=== PATIENT | male | born 1945 | race Caucasian/White ===

== ENCOUNTER 2016-09-10 17:30 | Inpatient (IN) | payer MEDICARE, OTHER ==
[~2016-09-10] VITALS: Ht 172.7 cm; Wt 83.8 kg
--- NOTE | ~2016-09-10 | CON ---
PATIENT'S NAME: REYES JOE [facility] AGE: 70 Y [address] ROOM: [place] [address] [place] [facility] [place]: 09/10/2016 Consultation DISCHARGE DATE: FAMILY PHYSICIAN: Radha Mohr MD ATTENDING PHYSICIAN: BELGICA CR DATE OF CONSULTATION: 09/11/2016 PRINCIPAL DIAGNOSES: 1. Colovesical fistula. 2. Recurrent urinary tract infections. HISTORY: The patient is a 70-year-old male with multiple medical problems including coronary artery disease, valvular heart disease, type 2 diabetes, chronic kidney disease, severe diabetic peripheral neuropathy, chronic immobility, DVT and chronic immobilization as well as obesity, who was admitted to the hospital because of recurrent urinary tract infections. He had been treated multiple times for recurrent urinary tract infections, and they recurred. He was treated with both Bactrim and levofloxacin in the past. Therefore, a CAT scan was done at this admission, and he was noted to have diverticular disease with evidence of air in the bladder suggesting that the patient may have a colovesical fistula. Therefore, I was asked to see him in consultation. PAST MEDICAL HISTORY: As noted previously, coronary artery disease, valvular heart disease, type 2 diabetes, chronic kidney disease, diabetic nephropathy, lack of mobilization, DVT on anticoagulation, osteoarthritis, history of hypertension, hyperlipidemia, obesity, and amyloidosis for which he is on steroid therapy. FAMILY HISTORY: Significant for coronary artery disease in both his mother and his father, and he has a brother with type 2 diabetes. SOCIAL HISTORY: He drinks socially and he is a nonsmoker. REVIEW OF SYSTEMS: Noncontributory and negative, except what is noted in the history of present illness. PHYSICAL EXAMINATION: GENERAL: He is awake and alert. He is frail and ill appearing, but again in no acute distress on admission. VITAL SIGNS: Stable. PATIENT'S NAME: HEATH CLARKS [facility] AGE: 70 Y [address] ROOM: [place] [address] [place] [facility] [place]: 09/10/2016 Consultation DISCHARGE DATE: FAMILY PHYSICIAN: Radha Mohr MD ATTENDING PHYSICIAN: BELGICA CR LUNGS: Clear. HEART: Regular rate and rhythm. ABDOMEN: Obese, but soft. Mild tenderness in the left lower quadrant, but no guarding and no rebound. There are no palpable masses either. EXTREMITIES: Warm. NEUROLOGIC: Again, he has evidence of peripheral neuropathy. LABORATORY DATA: White blood cell count is 9.4 with a hemoglobin of 9.7, hematocrit 29.9, platelet count of 256,000. BUN is 57, creatinine is 1.7, glucose 89, sodium 132, potassium 4.2, chloride is 103 with a bicarbonate of 29. RADIOLOGIC STUDIES: A CAT scan of the abdomen was done without contrast, which showed some evidence of perforated diverticular disease with small abscesses and with a suggestion of a colovesical fistula. There was thickening of the bladder wall where it connects with the colon and there is air in the bladder suggesting a colovesical fistula. MEDICATIONS: Current medications include: 1. Coumadin. 2. Levothyroxine. 3. Flomax. 4. Bumex. 5. Metoprolol. 6. Hydralazine. 7. Tramadol. 8. NovoLog. 9. MiraLAX. 10. Prednisone. 11. Omeprazole. 12. Lantus. 13. Calcitriol. 14. Finasteride. 15. Vitamin D. ASSESSMENT AND PLAN: This is a 70-year-old with multiple medical problems including valvular stenosis, coronary artery disease for which he has had surgery, as well as diabetes. The patient is on prednisone as well as Coumadin. His last INR is 2. The patient's CAT scan suggests that he may have a colovesical fistula. The plan is to do a cystogram to confirm this diagnosis. The patient has significant surgical risks with both his heart disease, his prednisone therapy, his coagulopathy, and just his overall frail and obese physique. If PATIENT'S NAME: REYES JOE [facility] AGE: 70 Y [address] ROOM: [place] [address] [place] [facility] [place]: 09/10/2016 Consultation DISCHARGE DATE: FAMILY PHYSICIAN: Radha Mohr MD ATTENDING PHYSICIAN: BELGICA CR the patient does need surgery, we will need to have Anesthesia consultation as well as Cardiology consultation to make sure that we make him as optimal as possible. Thank you for allowing me to participate in the care of this patient. I will follow up after the results of the studies. MD EDUARDO MOSHER/stanley /[id number] d: 09/11/162017 t: 10/18/16 1434, CONSULTATION REPORT
--- NOTE | ~2016-09-10 | HP ---
PATIENT'S NAME: REYES JOE [facility] AGE: 70 Y [address] ROOM: [place] [address] [place]ATION: [facility] [place] ADMIT DATE: 09/10/2016 History & Physical DISCHARGE DATE: FAMILY PHYSICIAN: Radha Mohr MD ATTENDING PHYSICIAN: BELGICA CR DATE OF SERVICE: CHIEF COMPLAINT: Complicated urinary tract infection, failed outpatient antibiotic therapy, and suspected diskitis. HISTORY OF PRESENTING ILLNESS: This 70-year-old white male with previous history of coronary artery disease status post coronary artery bypass grafting, diabetic peripheral neuropathy, and chronic immobility, was sent to [facility] today after an outpatient clinic evaluation with his primary care provider for treatment of urinary tract infection. Briefly, he had developed some abdominal pain a few weeks ago. He was diagnosed with urinary tract infection and received at least two courses of antibiotic therapy including Bactrim for seven days and levofloxacin. He is continued to experience abdominal cramping and discomfort as well as dysuria and hematuria. Over the last several days, he has developed increasing back pain. X-rays done today revealed some abnormality at T12 and L1 concerning for disk infection. He was subsequently referred here for definitive evaluation and management. He denies fevers, but admits that he has had some chills and sweats intermittently. He does complain of a low-grade headache, but no nausea. His appetite has been poor. Denies any chest pain. Denies chest congestion or cough. Stools have been sluggish and he last stooled a couple of days ago. He denies noticing any blood in his stools or black tarry stools. He has had urinary frequency and hesitancy as well as significant dysuria and malodorous urine. He has noticed some episodes of hematuria as well. He does complain of persistent numbness and weakness in his lower extremities. He is chronically immobile and has not walked for a couple of years. He no longer has the ability to stand and requires the assistance of another person for transfers. He has noticed some increased swelling in his legs recently. PAST MEDICAL HISTORY: Allergies: Penicillin. ILLNESSES: PATIENT'S NAME: REYES JOE [facility] AGE: 70 Y [address] ROOM: [place] [address] LOCATION: [facility] [place] ADMIT DATE: 09/10/2016 History & Physical DISCHARGE DATE: FAMILY PHYSICIAN: Radha Mohr MD ATTENDING PHYSICIAN: BELGICA CR 1. Coronary artery disease status post coronary artery bypass grafting. 2. Valvular heart disease. 3. Diabetes mellitus type 2. 4. Chronic kidney disease, stage 3. 5. Diabetic peripheral neuropathy. 6. Chronic immobility. 7. Previous history of diskitis (not well documented). 8. DVT on long-term anticoagulation with warfarin. 9. Chronic diastolic congestive heart failure. 10. Osteoarthritis, generalized. 11. Valvular heart disease with aortic stenosis by echo October 2015. 12. Essential hypertension. 13. Hyperlipidemia. 14. History of gouty arthritis. 15. Obesity. 16. Amyloidosis on steroid therapy. CURRENT MEDICATIONS: 1. Coumadin daily. 2. Levothyroxine 25 mcg p.o. daily. 3. Flomax 0.4 mg p.o. b.i.d. 4. Bumex 2 mg p.o. daily. 5. Metoprolol 50 mg p.o. b.i.d. 6. Refresh Liquigel each eye daily as needed. 7. Hydralazine 10 mg q.6 hours p.r.n. systolic greater than 180. 8. Tramadol 50 mg 2 tablets p.o. q.8 hours p.r.n. 9. NovoLog insulin per sliding scale with meals. 10. MiraLax 17 g p.o. daily. 11. Prednisone 10 mg p.o. daily. 12. Omeprazole 20 mg p.o. daily. 13. Lantus insulin 12 units subcu daily. 14. Calcitriol 0.25 mcg two tablets p.o. 4 times a week. 15. Finasteride 5 mg p.o. daily. 16. Vitamin D 1000 units p.o. daily. FAMILY HISTORY: Significant for heart disease in both his father and mother. Father at the age of 51 and mother at 72. His brother has diabetes mellitus type 2 and suspected Rakesh-Danlos syndrome. SOCIAL HISTORY: He is and lives in [place]. 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 He is a lifelong nonsmoker. He does drink alcohol occasionally. REVIEW OF SYSTEMS: PATIENT'S NAME: HEATH REYES L [facility] AGE: 70 Y [address] ROOM: [address] [address] LOCATION: [facility] [place] ADMIT DATE: 09/10/2016 History & Physical DISCHARGE DATE: FAMILY PHYSICIAN: Radha Mohr MD ATTENDING PHYSICIAN: BELGICA CR As per HPI. All other organ systems reviewed and are negative. OBJECTIVE: VITAL SIGNS: Temperature 98, pulse 69, respirations 18, blood pressure 133/84, weight is 78.8 kilos that is down from 91.7 in October of 2015. GENERAL: He is frail, mildly ill-appearing, but in no acute distress, lying in the bed. SKIN: Supple, pink, warm, and dry. No obvious rashes. HEENT: Otherwise, normocephalic. Sclerae nonicteric, but mildly injected. Pupils are equal, round, slow to react to light. Extraocular movements appear intact. Nasal turbinates normal in appearance. Oropharynx clear. Mucous membranes are pink and moist. NECK: Supple. Plethoric. No masses or adenopathy. No thyromegaly. No JVD. CHEST: Wall is symmetrical. HEART: Regular with a grade 3/6 systolic ejection murmur. LUNGS: Diminished at the bases. No crackles or wheezes are heard. ABDOMEN: Soft, protuberant, diffusely tender, but no guarding or rebound. No masses or hepatosplenomegaly. He does have some tenderness with manipulation over the suprapubic area. : Not done. RECTAL: Not done. EXTREMITIES: Display 2+ pitting edema. No cyanosis. NEUROLOGICAL: Cranial nerves 2 through 12 appear grossly intact. Sensation appears normal, but subjectively diminished over the bilateral lower extremities. DTRs are 0 to 1+ bilaterally. Strength is 0 to 1+ out of 5 in the bilateral lower extremities. 4/5 in the bilateral upper extremities. Gait is not observed. LABORATORY AND X-RAY DATA: From [facility] today, CBC showed a white blood cell count. 9.2, hemoglobin 11.1, hematocrit 34.3, platelets 334. Chemistries reveal BUN and creatinine 52 and 1.7 respectively. Sodium and potassium of 132 and 4.6, chloride and CO2 of 98 and 27, calcium 8.5, AST and ALT 14 and 17, bilirubin. 0.8. Urinalysis was significant for packed wbcs, 15 to 20 rbcs, 4+ bacteria, 3+ leukocyte esterase, and negative nitrites. X-ray of the lumbar spine showed bony abnormalities at T12, L1. Abdomen x-ray showed moderate amount of stool, no obstruction. ASSESSMENT/PLAN: 1. Complicated urinary tract infection, he is not septic appearing. We will admit to inpatient care. He has failed at least two courses of outpatient antibiotic therapy. It does not appear that any cultures have been done and we will proceed with blood cultures, urine cultures tonight. We will also get lactate and procalcitonin to assess the severity of illness. We will initiate IV aztreonam. Consider coverage PATIENT'S NAME: REYES JOE [facility] AGE: 70 Y [address] ROOM: [id number] [place], [place] [address] LOCATION: [facility] [place] ADMIT DATE: 09/10/2016 History & Physical DISCHARGE DATE: FAMILY PHYSICIAN: Radha Mohr MD ATTENDING PHYSICIAN: BELGICA CR for Gram positive cocci. Because his renal function is poor and he is not overtly septic, we will hold off on that for tonight. We will follow culture results when they are known. 2. Acute low back pain, differential diagnosis includes the possibility of diskitis. We will plan to get MRI scan tomorrow to better delineate. He does have previous history of diskitis, although that is not well documented. We will continue with broad-spectrum antibiotic therapy as above and await imaging findings. 3. Generalized abdominal pain, presumably related to his urinary tract infection. We will proceed with CT scan to surveil for other possible sources of infection. 4. Chronic kidney disease, stage 3, currently, clinically stable. We will watch his fluid volume balance closely. We will go ahead and initiate some very gentle IV fluid hydration therapy tonight and plan to continue his home Bumex regimen. 5. Coronary artery disease, clinically asymptomatic and stable. He is not currently on aspirin or statin therapy. We will review his history and consider adding those medications. 6. Deep vein thrombosis on long-term anticoagulation with warfarin. I do not see any history of atrial fibrillation in the records. We will follow his PT/INR closely while he is in the hospital. 7. Essential hypertension, appears to be adequately controlled, we will monitor the trend. 8. Constipation, chronic, encourage a moderately aggressive bowel regimen. We will continue with MiraLax and try to mobilize him as he is physically able. 9. Diabetes mellitus type 2. We will manage with Accu-Cheks and sliding scale insulin while he is inpatient. 10. Amyloidosis on chronic steroid therapy with prednisone. We will continue with that therapy for now. 11. Diabetic peripheral neuropathy with chronic immobility. He is at high risk for skin breakdown and recurrent infections. We will try to mobilize him as he can tolerate. 12. Deep venous thrombosis prophylaxis. He is going to be fully anticoagulated with Coumadin as described above. MD HANDY MADSEN/stanley /[id number] D: [id number] T: [id number] HISTORY & PHYSICAL
--- NOTE | ~2016-09-10 | DS ---
PATIENT'S NAME: REYES JOE [facility] AGE: 70 Y [address] ROOM: [address] [address] [place] [facility] [place]: 09/10/2016 Discharge Summary DISCHARGE DATE: 09/21/2016 FAMILY PHYSICIAN: Radha Mohr MD ATTENDING PHYSICIAN: Leia Cain FINAL DIAGNOSES: 1. Diverticulosis with abscess and perforation. 2. Nlxvn-fu-yzrhirw back pain. 3. Diabetes mellitus type 2. 4. Chronic urinary tract infection, secondary to suspected colonic vesicular fistula. 5. Amyloidosis, on long-term steroid therapy. 6. Essential hypertension. 7. History of deep vein thrombosis on long-term anticoagulation. 8. Stage 3 chronic kidney disease. 9. Mild aortic stenosis. 10. Acute kidney injury. HISTORY OF PRESENT ILLNESS: For details of admission, please see the history and physical dictated by Dr. Pelaez for details. In short, the patient had been treated for recurrent urinary tract infections and was transferred due to increasing abdominal pain, nausea, and vomiting. LABORATORY STUDIES: Sodium on admission was 137, most prior discharge to 142, potassium on admission was 4.2, most prior to discharge 3.6, BUN on admission was 57, most prior to discharge 39, creatinine on admission was 1.7, at discharge was 1.2. Liver enzymes on admission were normal. Magnesium on admit was 2.1, most prior to discharge 1.9. Pro-BNP on September 10 was 12,384. Hemoglobin A1c was 7. C-reactive protein was 345. White blood cell count on admission was 9.4, discharge 8.9, hemoglobin on admission was 9.7, most prior to discharge was 9.4, and platelet count on admission was 256, most prior to discharge 211. Pro-time at discharge was 2.48. Sed rate on admission was 75. Procalcitonin on admission was 0.05. Urinalysis on admission showed a full field of whites, 20 to 50 reds, and many bacteria. MICROBIOLOGY DATA: Urine culture grew E. coli. Blood cultures were negative. RADIOLOGIC DATA: CT scan on admission showed acute diverticulitis with bowel wall thickening. There was an abscess, which was felt to be secondary to the perforated diverticuli. There is also significant amount of wall thickening on the left-side of the bladder and there was a question whether it was a colonic vesicular fistula. MRI of the lumbar spine done on admission done for severe pain showed only chronic changes. MRI showed an acute compression fraction at L2, chronic compression deformities at L1, L3, L4, and L5, he had PATIENT'S NAME: REYES JOE [facility] AGE: 70 Y [address] ROOM: [place] [address] [place] [facility] [place] DATE: 09/10/2016 Discharge Summary DISCHARGE DATE: 09/21/2016 FAMILY PHYSICIAN: Radha Mohr MD ATTENDING PHYSICIAN: Leia Cain spinal stenosis at L3-L4 and L4-L5, but there were no of evidence of diskitis. The cystogram was negative for fistula. Repeat CT scan done on September 15 did not really show any significant change in the abscess size. HOSPITAL COURSE: The patient was accepted in transfer from [place] and admitted to the hospital with complaints of severe abdominal pain. It was felt that it was initially due to a complicated UTI. He was admitted. Blood cultures and urine cultures were obtained. He was started on aggressive IV hydration because he did have acute kidney injury. He was started on IV aztreonam and laboratory was done to evaluate procalcitonin and lactate. An MRI was done of his lumbar spine because of this severe pain there was concern that he may have a diskitis. CT scan of the abdomen was also obtained because of severe pain. He was put on a sliding scale insulin to control his blood sugars. The CT scan did return with evidence of diverticulitis and abscess and there was also question of a fistula. General Surgery was consulted. Cystogram was ordered to evaluate for the abscess. The cystogram did return negative. An echocardiogram was done to evaluate the aortic stenosis. It did show that it was overall stable and it was read as mild. Pro-time was obtained because it was a concern that he may need to have surgical intervention. Surgery did feel that at this time they wanted to use IV antibiotics and monitor him. PT/OT were asked to see him because of the back pain. The MRI returned without any evidence of diskitis. He was resumed on his anticoagulation and adjusted to keep his INR between 2 and 3. He was started on a NovoLog carb count to help control his blood sugars. His antibiotics were adjusted to make sure that he had coverage. He was continued on aztreonam and Flagyl. His urine culture did grow a gram-negative robles. The decision was made to take him off the Azactam and use Invanz because it is once a day medication and for ease of giving the med. He was given a Lidoderm patch for his back. I did discuss this case with ID. They recommended cefepime would be a good IV medication as well as Rocephin. A repeat CT scan was ordered for the 5th to see if there was any significant worsening or improvement. The CT scan really did not show any change. This was discussed with General Surgery as there was a change from Dr. Ziegler to Dr. Ibrahim. Dr. Ibrahim was suspicious that there was a fistula and he did feel that the patient was going to need surgery. The thought was that we could treat him with IV antibiotics for a total of 6 weeks and then proceed with the surgery. We did get a PICC line in the patient. We did have PT continue to work with his back pain and actually we were able to start getting some relief. It was felt that the patient would need to go to [facility] emergency bed in [place] for a period of time receive the IV antibiotics. A bed became available on September 21 and it was felt that the patient was stable for transfer. DISCHARGE INSTRUCTIONS: The patient is to be admitted to the [facility], have a regular diabetic diet. He is to have Accu-Cheks q.c. and h.s. PT and OT will see him on every Tuesday. He will have a Chem panel, CBC, PATIENT'S NAME: REYES JOE [facility] AGE: 70 Y [address] ROOM: [address] [address] [place] [facility] [place] DATE: 09/10/2016 Discharge Summary DISCHARGE DATE: 09/21/2016 FAMILY PHYSICIAN: Radha Mohr MD ATTENDING PHYSICIAN: Leia Cain and daily pro-times. He will have a followup appointment with Dr. Ibrahim on Tuesday, October 25 at 9:45 a.m. The tentative plan is to see Dr. Ibrahim on Tuesday, have a colonoscopy on Tuesday, and surgery on Tuesday. MEDICATIONS: 1. Alphagan 1 drop 3 times daily. 2. Bumex 2 mg daily. 3. Rocephin 2 g IV q.24 h. stop date October 23. 4. Rocaltrol 0.5 mcg twice daily. 5. Proscar 5 mg daily. 6. NovoLog moderate sliding scale. 7. NovoLog 1 unit per 15 g of carbs consumed with meals. 8. Synthroid 25 mcg daily. 9. Metoprolol 50 mg twice daily, hold if his systolic blood pressure is less than 110 or heart rate less than 60. 10. Lido patch daily to his lower back. 11. Flagyl 500 mg 3 times daily, stop date October 23. 12. Fish oil a 1000 mg daily. 13. Prilosec 20 mg at bedtime. 14. Prednisone 10 mg daily. 15. Florastor 250 mg twice daily. 16. Flomax 0.4 mg twice daily. 17. Trusopt 2% one drop 3 times daily. 18. Xalatan 1 drop at bedtime to the right eye. 19. Pred-Forte 1% one drop to right eye twice daily. 20. Timoptic 1 drop twice daily both eyes. 21. Ativan 0.5 mg as needed for anxiety. 22. Percocet 5/325 one every 4 hours as needed for pain. 23. Vitamin D 1000 units daily. 24. Ocuflox 0.3% 1 drop 4 times daily to the right eye. 25. Acular 1 drop 3 times daily to the right eye. 26. Polymyxin B 1 drop 4 times daily to the right eye. 27. Coumadin 2.5 mg daily. PROGNOSIS: Overall, prognosis at discharge is good. This was discussed with Dr. Salinas who is the accepting physician in [place], Dr. Gaurav Ibrahim, and Dr. Radha Mohr, PCP. RODRIGO BONILLA MD LAW/modl PATIENT'S NAME: REYES JOE [facility] AGE: 70 Y [address] ROOM: [place] [address] [place] [facility] [place] DATE: 09/10/2016 Discharge Summary DISCHARGE DATE: 09/21/2016 FAMILY PHYSICIAN: Radha Mohr MD ATTENDING PHYSICIAN: Leia Cain /[id number] CC: MD Chucho Guzman MD Annette S Miller, MD [facility] Bed d: 09/22/16 0308 t: 09/23/16 1830, DISCHARGE SUMMARY
--- NOTE | ~2016-09-10 | ECHO ---
Transthoracic Echocardiography Report (TTE) Demographics Patient Name REYES JOE Date of Study 09/11/2016 L Patient Number [id number] Visit Number [id number] Date of 1945 Room Number G3203 Gender Male Number Age 70 year(s) Referring Onur Malave MD Electric Truck Driver Юлия Tran RVT, Physician RDCS Physician Interpreting Lamont Moranclau Onion Topper Physician Supervising Ordering Ramy Santoyo MD, MD/MLP Physician Nurse Stress Redevelopment Specialist Conclusions Contractility Score Summary Normal Left Ventricular contractility was noted. Summary The estimated left ventricular ejection fraction is 55-60%. Moderate concentric left ventricular hypertrophy. The left atrium is mildly dilated. The aortic valve is moderately sclerotic. Mild aortic stenosis with mean gradient across aortic valve of 12 mm hg. There is mild aortic regurgitation by color Doppler. The ascending aorta is dilated. The maximum diameter measures 4.4 cm. Procedure Type of Study TTE procedure:2D Echocardiogram. Procedure Date Date: 09/11/2016 Start: 01:47 PM Study Location: Inpatient Portable Technical Quality: Adequate visualization Indications:Pre surgical clearance. Appropriate Use Criteria: 8 Patient Status: Routine Rhythm: NSR HR: 78 bpm BP: 115/68 mmHg M-Mode/2D Measurements LV Diastolic Dimension: 4.51 cm LV Systolic Dimension: 2.57 cm LV Septum Diastolic: 1.77 cm LV PW Diastolic: 1.6 cm AO Root Dimension: 3.1 cm Cardiac Output: 4.98 l/min AV Cusp Separation: 0.8 cm RV Diastolic Dimension: 3.03 cm LA volume: 68 ml LVOT: 2.2 cm RV Base: 4.14 cm LVOT VTI: 16.8 cm RV Mid: 2.85 cm LV Stroke volume: 63.83 ml TAPSE: 1.26 cm TDI-S': 6.36 cm/s Doppler Measurements AV Peak Velocity: 2.25 m/s MV Peak E-Wave: 1.11 m/s AV Peak Gradient: 20.25 mmHg MV Peak A-Wave: 0.71 m/s AV Mean Gradient: 14 mmHg MV E/A Ratio: 1.56 LVOT Peak Velocity: 0.83 m/s MV P1/2t: 55 msec TR Gradient:7.73 mmHg PV Peak Velocity: 1.02 m/s Estimated RAP:15 mmHg PV Peak Gradient: 4.16 mmHg Estimated RVSP: 23 mmHg Estimated PASP: 22.73 mmHg E' Septal Velocity: 0.05 m/s A' Septal Velocity: 0.04 m/s E' Lateral Velocity: 0.08 m/s A' Lateral Velocity: 0.08 m/s Findings Left Ventricle Moderate concentric left ventricular hypertrophy. Unable to determine diastolic function. Right Ventricle Right ventricle not visualized well Left Atrium The left atrium is mildly dilated. Right Atrium Normal right atrial size. ] Mitral Valve Mild mitral annular calcification. Trivial mitral regurgitation by color Doppler. Aortic Valve The aortic valve is moderately sclerotic. Mild aortic stenosis with mean gradient across aortic valve of 12 mm hg. There is mild aortic regurgitation by color Doppler. Tricuspid Valve Normal tricuspid valve structure and function. Trivial tricuspid regurgitation by color Doppler. Pulmonic Valve Pulmonic valve is not well seen. Pericardial Effusion No evidence of pericardial effusion. Miscellaneous The ascending aorta is dilated. The maximum diameter measures 4.4 cm. Pleural Effusion No evidence of pleural effusion. Contractility Score LV regional wall motion:(0-Non visualized 1-Normal 2-Hypokinesis 3-Akinesis 4-Dyskinesis 5-Aneurysm) Signature dtt: MISTI HARDWICK dtd: 09/11/16 [id number] Physician Self Edit
[~2016-09-10 17:30] MED LIST changes: -ACULAR5 ML OPHTH; -ATIVAN 0.5MG0.5 MG PO; -CEFTRIAXONE2 GM IV; -CIPRO500 MG PO; -COUMADIN ** IA3 MG PO; -COUMADIN **IA2.5 MG PO; -DULCOLAX10 MG R; -FLAGYL500 MG PO; -HYDROCORTISONE20 GM TOP; -LACTINEX (FLORA1 TAB PO; -LIDODERM1 EACH TOP; -MILK OF MA400 MG/5 M PO; -PERCOCET 5-3251 EACH PO; -POLYMYXIN B-TMP10 ML OPHTH; -XALATAN2.5 ML OPHTH
[2016-09-11] MEDS ORDERED: XALATAN2.5 ML OPHTH (00:07)
[2016-09-11] MEDS ORDERED: ACULAR5 ML OPHTH (00:09)
[2016-09-11] MEDS ORDERED: ATIVAN 0.5MG0.5 MG PO (00:10)
[2016-09-11] MEDS ORDERED: PERCOCET 5-3251 EACH PO (00:11)
[2016-09-11] MEDS ORDERED: POLYMYXIN B-TMP10 ML OPHTH (00:35)
[2016-09-11 05:01] LABS: BASOPHIL % 0.1 %; EOSINOPHIL % 0.3 %; HEMATOCRIT 29.9 % (37.0-53.0); HEMOGLOBIN 9.7 g/dL (11.0-16.0); IMMATURE GRANULOCYTE # 0.1 K/uL (0.0-0.3); IMMATURE GRANULOCYTE % 0.9 %; LYMPHOCYTE # 2.2 K/uL (0.8-4.0); LYMPHOCYTE % 23.3 %; MCH 31.9 pg (27.0-34.0); MCHC 32.4 gm/dL (32.0-36.5); MCV 98.4 fl (83.0-98.0); MONOCYTE # 0.9 K/uL (0.0-1.0); MONOCYTE % 9.9 %; MPV 8.9 fl (9.4-12.4); NEUTROPHIL # (ANC) 6.2 K/uL (1.4-9.0); NEUTROPHIL % 65.5 %; NRBC % 0 /100WBC (0-0.00); PLATELET COUNT 256 K/uL (150-450); RBC 3.04 M/uL (3.50-5.50); RDW-CV 15.3 % (11.9-14.6); WBC 9.4 K/uL (4.0-11.0)
[2016-09-11 05:11] LABS: INR - (THERAPEUTIC) 2.02 (0.92-1.07); PROTIME 21.4 SECONDS (9.8-11.4)
[2016-09-11 05:16] LABS: ALBUMIN 2.1 gm/dL (3.5-5.0); ANION GAP 9.2 (10.0-19.0); CALCIUM 8.1 mg/dL (8.5-10.5); CREATININE 1.7 mg/dL (0.6-1.3); PHOSPHORUS 3.1 mg/dL (2.5-4.9); POTASSIUM 4.2 mMol/L (3.7-5.1)
[2016-09-11 05:58] LABS: BILIRUBIN URINE NEGATIVE (NEGATIVE); BLOOD URINE 250 /UL (NEGATIVE); COLOR URINE YELLOW (YELLOW); GLUCOSE URINE NEGATIVE (NEGATIVE); KETONE URINE NEGATIVE (NEGATIVE); LEUKOCYTES URINE 500 /UL (NEGATIVE); NITRITE URINE NEGATIVE (NEGATIVE); PH URINE 6.5 (4.0-8.0); PROTEIN URINE 100 mg/dL (NEGATIVE); SPEC GRAVITY URINE 1.015 (1.003-1.035); TURBIDITY URINE 3+ (CLEAR); UROBILINOGEN URINE NORMAL (NORMAL)
[2016-09-11 06:04] LABS: RBC URINE 20-50 #/HPF (NEGATIVE); WBC URINE FULL FIELD #/HPF (NEGATIVE)
[2016-09-11 06:05] LABS: BACTERIA URINE MANY (NEGATIVE); EPITHELIAL URINE 0-2 #/HPF (NEGATIVE); MUCUS URINE 1+ (NEGATIVE)
[2016-09-11 14:01] LABS: INR - (THERAPEUTIC) 1.99 (0.92-1.07)
[2016-09-11] MEDS ORDERED: COUMADIN **IA2.5 MG PO (16:26)
[2016-09-12 05:03] LABS: BASOPHIL % 0.2 %; EOSINOPHIL % 0.5 %; HEMATOCRIT 28.6 % (37.0-53.0); HEMOGLOBIN 9.4 g/dL (11.0-16.0); IMMATURE GRANULOCYTE # 0.1 K/uL (0.0-0.3); IMMATURE GRANULOCYTE % 0.7 %; LYMPHOCYTE # 1.8 K/uL (0.8-4.0); LYMPHOCYTE % 20.3 %; MCH 32.4 pg (27.0-34.0); MCHC 32.9 gm/dL (32.0-36.5); MCV 98.6 fl (83.0-98.0); MONOCYTE # 0.9 K/uL (0.0-1.0); MONOCYTE % 10.7 %; MPV 8.9 fl (9.4-12.4); NEUTROPHIL # (ANC) 5.9 K/uL (1.4-9.0); NEUTROPHIL % 67.6 %; NRBC % 0 /100WBC (0-0.00); PLATELET COUNT 238 K/uL (150-450); WBC 8.8 K/uL (4.0-11.0)
[2016-09-12 05:19] LABS: INR - (THERAPEUTIC) 1.86 (0.92-1.07); PROTIME 19.6 SECONDS (9.8-11.4)
[2016-09-12 05:24] LABS: ANION GAP 8.8 (10.0-19.0); CALCIUM 7.8 mg/dL (8.5-10.5); CREATININE 1.4 mg/dL (0.6-1.3); MAGNESIUM 2.1 mg/dL (1.8-2.6); PHOSPHORUS 2.9 mg/dL (2.5-4.9); POTASSIUM 3.8 mMol/L (3.7-5.1)
[2016-09-12 05:25] LABS: ALBUMIN 1.9 gm/dL (3.5-5.0)
[2016-09-13 04:08] LABS: HEMATOCRIT 28.1 % (37.0-53.0); HEMOGLOBIN 9.2 g/dL (11.0-16.0)
[2016-09-13 04:15] LABS: INR - (THERAPEUTIC) 1.56 (0.92-1.07); PROTIME 16.5 SECONDS (9.8-11.4)
[2016-09-13 04:19] LABS: ANION GAP 10.7 (10.0-19.0); CALCIUM 7.6 mg/dL (8.5-10.5); CREATININE 1.2 mg/dL (0.6-1.3); MAGNESIUM 1.9 mg/dL (1.8-2.6); PHOSPHORUS 2.9 mg/dL (2.5-4.9); POTASSIUM 3.7 mMol/L (3.7-5.1)
[2016-09-13 04:21] LABS: ALBUMIN 1.9 gm/dL (3.5-5.0)
[2016-09-14 05:15] LABS: INR - (THERAPEUTIC) 1.84 (0.92-1.07); PROTIME 19.4 SECONDS (9.8-11.4)
[2016-09-15 06:27] LABS: INR - (THERAPEUTIC) 1.97 (0.92-1.07); PROTIME 20.8 SECONDS (9.8-11.4)
[2016-09-17 05:41] LABS: INR - (THERAPEUTIC) 3.61 (0.92-1.07); PROTIME 38.4 SECONDS (9.8-11.4)
[2016-09-18 05:41] LABS: BASOPHIL % 0.3 %; EOSINOPHIL % 0.2 %; HEMATOCRIT 28.9 % (37.0-53.0); HEMOGLOBIN 9.4 g/dL (11.0-16.0); IMMATURE GRANULOCYTE # 0.2 K/uL (0.0-0.3); IMMATURE GRANULOCYTE % 1.8 %; LYMPHOCYTE # 1.7 K/uL (0.8-4.0); LYMPHOCYTE % 18.7 %; MCH 32.3 pg (27.0-34.0); MCHC 32.5 gm/dL (32.0-36.5); MCV 99.3 fl (83.0-98.0); MONOCYTE # 0.8 K/uL (0.0-1.0); MONOCYTE % 8.9 %; MPV 9.2 fl (9.4-12.4); NEUTROPHIL # (ANC) 6.3 K/uL (1.4-9.0); NEUTROPHIL % 70.1 %; NRBC % 0 /100WBC (0-0.00); PLATELET COUNT 211 K/uL (150-450); RBC 2.91 M/uL (3.50-5.50); RDW-CV 15.2 % (11.9-14.6); WBC 8.9 K/uL (4.0-11.0)
[2016-09-18 06:01] LABS: ALK PHOS 54 IU/L (33-138); ANION GAP 11.6 (10.0-19.0); AST 13 IU/L (10-40); BLOOD UREA NITROGEN 39 mg/dL (6-24); CALCIUM 8.2 mg/dL (8.5-10.5); CHLORIDE 109 mMol/L (96-110); CO2 25 mMol/L (22-32); CREATININE 1.2 mg/dL (0.6-1.3); ESTIMATED GFR (MDRD EQUATION) 60; MAGNESIUM 1.9 mg/dL (1.8-2.6); PHOSPHORUS 2.8 mg/dL (2.5-4.9); POTASSIUM 3.6 mMol/L (3.7-5.1); SODIUM 142 mMol/L (135-145); TOTAL BILIRUBIN 0.4 mg/dL (0.0-1.5)
[2016-09-18 06:15] LABS: ALBUMIN 1.9 gm/dL (3.5-5.0); ALT < 10 IU/L (12-78)
[2016-09-18 06:37] LABS: INR - (THERAPEUTIC) 4.21 (0.92-1.07); PROTIME 44.8 SECONDS (9.8-11.4)
[2016-09-19 06:31] LABS: INR - (THERAPEUTIC) 4.02 (0.92-1.07); PROTIME 42.8 SECONDS (9.8-11.4)
[2016-09-20 06:16] LABS: INR - (THERAPEUTIC) 2.87 (0.92-1.07); PROTIME 30.5 SECONDS (9.8-11.4)
[2016-09-21 06:03] LABS: INR - (THERAPEUTIC) 2.48 (0.92-1.07); PROTIME 26.3 SECONDS (9.8-11.4)
== END 2016-09-21 09:25 | disposition swing bed (61) | DRG 699 ==
LOC: GMSU 17:30
PROVIDERS: Family Medicine; Internal Medicine; ADMIT Internal Medicine
PROC: BT101ZZ Fluoroscopy of Bladder using Low Osmolar Contrast (ICD-10-PCS; principal; 2016-09-11)
PROC: 02HV33Z Insertion of Infusion Device into Superior Vena Cava, Percutaneous Approach (ICD-10-PCS; 2016-09-16)
DX: N32.1 Vesicointestinal fistula (principal); K57.20 Diverticulitis of large intestine with perforation and abscess without bleeding; N17.9 Acute kidney failure, unspecified; E85.9 Amyloidosis, unspecified; I13.0 Hypertensive heart and chronic kidney disease with heart failure and stage 1 through stage 4 chronic kidney disease, or unspecified chronic kidney disease; I50.32 Chronic diastolic (congestive) heart failure; E11.22 Type 2 diabetes mellitus with diabetic chronic kidney disease; N39.0 Urinary tract infection, site not specified; Z66 Do not resuscitate; I25.10 Atherosclerotic heart disease of native coronary artery without angina pectoris; E11.42 Type 2 diabetes mellitus with diabetic polyneuropathy; N18.3 Chronic kidney disease, stage 3 (moderate); M19.90 Unspecified osteoarthritis, unspecified site; E78.5 Hyperlipidemia, unspecified; E66.9 Obesity, unspecified; M10.9 Gout, unspecified; M54.5 Low back pain; I35.0 Nonrheumatic aortic (valve) stenosis; B96.20 Unspecified Escherichia coli [E. coli] as the cause of diseases classified elsewhere; I48.0 Paroxysmal atrial fibrillation; R79.1 Abnormal coagulation profile; Z88.0 Allergy status to penicillin; Z95.1 Presence of aortocoronary bypass graft; Z86.718 Personal history of other venous thrombosis and embolism; Z79.01 Long term (current) use of anticoagulants; Z79.52 Long term (current) use of systemic steroids; M15.9 Polyosteoarthritis, unspecified; G89.29 Other chronic pain; M54.9 Dorsalgia, unspecified; Z79.4 Long term (current) use of insulin; K59.09 Other constipation; D53.9 Nutritional anemia, unspecified
CPT/HCPCS: A9270; C1751; C1894; J0692; J0696; J1335; J2001; J7030; J7040; J7050; J7512; Q9967

== ENCOUNTER → 2016-09-10 | Outpatient (CLI) | payer MEDICARE, OTHER ==
[~2016-09-10] MED LIST: ACULAR5 ML OPHTH; ALPHAGAN P5 ML OPHTH; APRESOLINE10 MG PO; ASPIRIN LO-DOSE81 MG PO; ATIVAN 0.5MG0.5 MG PO; BUMETANIDE2 MG PO; CALCITRIOL0.25 MCG PO; CEFTRIAXONE2 GM IV; CIPRO500 MG PO; COUMADIN ** IA3 MG PO; COUMADIN **IA2.5 MG PO; DELTASONE10 MG PO; DULCOLAX10 MG R; FISH OIL1000 MG PO; FLAGYL500 MG PO; FLOMAX0.4 MG PO; HYDROCORTISONE20 GM TOP; KEFLEX500 MG PO; LACTINEX (FLORA1 TAB PO; LANTUS SOL100 UNIT/1 SUB-Q; LEVOTHROID (SY25 MCG PO; LIDODERM1 EACH TOP; LOPRESSOR50 MG PO; MILK OF MA400 MG/5 M PO; NOVOLOG FL100 UNIT/1 SUB-Q; OFLOXACIN 0.3% OPHTH; PERCOCET 5-3251 EACH PO; POLYMYXIN B-TMP10 ML OPHTH; PRED FORTE 1%5 ML OPHTH; PRILOSEC20 MG PO; PROSCAR5 MG PO; TIMOPTIC 0.5%15 ML OPHTH; TRAMADOL HCL50 MG PO; TRUSOPT 2% OPTH10 ML OPHTH; TYLENOL EXTRA500 MG PO; VITAMIN D1000 UNI1 PO; XALATAN2.5 ML OPHTH
== END | disposition disaster alternative care site (69) ==
LOC: LFPA 15:41
DX: R10.9 Unspecified abdominal pain (principal)

== ENCOUNTER 2016-10-15 17:00 | Inpatient (IN) | payer MEDICARE, OTHER ==
[~2016-10-15] VITALS: Ht 172.7 cm; Wt 81.2 kg
--- NOTE | ~2016-10-15 | HP ---
PATIENT'S NAME: REYES JOE [facility] AGE: 71 Y [address] ROOM: [address] [place] [id number] LOCATION: [facility] ADMIT DATE: 10/15/2016 History & Physical DISCHARGE DATE: FAMILY PHYSICIAN: PHYSICIAN, UNKNOWN ATTENDING PHYSICIAN: SUZAN THIBODEAUX DATE OF SERVICE: CHIEF COMPLAINT: Generalized weakness and decreased oral appetite and dysuria. HISTORY OF PRESENT ILLNESS: This is a 71-year-old male, who was recently discharged from our hospital for perforated diverticulitis with abscess where the patient was treated medically with antibiotics and was also found to have a possible colovesical fistula. The patient was discharged back to [facility] for rehab. Over there, the patient was doing well and the patient was sent home eventually. However, the patient went back to [facility] complaining of decreased oral intake and decreased appetite and generalized weakness as well as urinary frequency, urgency, and dysuria. Over there at outside hospital, due to the poor appetite, the patient was started on total parenteral nutrition, which was later transitioned to NG tube for feeding formula after talking to the general surgeon given the patient has a scheduled surgery in the future later this month for colovesical fistula. The patient was also given some narcotics for the pain control in his lower back, which is chronic from the rectum from his hemorrhoids, which is also chronic. The patient became drowsy due to narcotics and they did CT of the head, which was unremarkable. After that, the patient regained his normal mental status. The patient was later transferred here for further care given that the patient was also found to have MERLIN due to decreased oral intake. The patient has NG tube because they want to increase the nutrition intake for the patient. The patient can swallow, just that he has no appetite and does not feel like eating. The patient denies any fever or chills. His only complaint right now is poor appetite, feels weak in general, and also complaining of rectal pain from his hemorrhoids, which is chronic and also dysuria with urinary frequency and urgency. REVIEW OF SYSTEMS: As mentioned in the history of present illness. All other systems were reviewed and were negative except those mentioned in the history of present illness. PAST MEDICAL HISTORY: PATIENT'S NAME: REYES JOE [facility] AGE: 71 Y [address] ROOM: [place] [address] LOCATION: [facility]PCU ADMIT DATE: 10/15/2016 History & Physical DISCHARGE DATE: FAMILY PHYSICIAN: PHYSICIAN, UNKNOWN ATTENDING PHYSICIAN: SUZAN THIBODEAUX 1. Prior history of DVT, on Coumadin. 2. Diverticulitis with abscess and perforation recently, currently treated with antibiotics. 3. Diabetes type 2. 4. 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 5. Amyloidosis, on steroids. 6. Hypertension. 7. Mild aortic stenosis. ALLERGIES: PENICILLIN CAUSES NAUSEA. SOCIAL HISTORY: Denies any alcohol or cigarette or illegal drug use. FAMILY HISTORY: Father and mother had some kind of heart problem, but he could not remember all the details. PAST SURGICAL HISTORY: CABG in the past for coronary artery disease. PHYSICAL EXAMINATION: VITAL SIGNS: Temperature 98.6, heart rate 67, respiration 18, blood pressure 115/62, and saturation 96% on 1 L nasal cannula. GENERAL APPEARANCE: Alert and oriented x3. Currently in no acute distress. The patient looks frail and elderly and malnourished. HEENT: Pupils equally round and reactive to light. Extraocular muscles intact. Anicteric sclerae. Nasal turbinates are normal bilaterally. Dry oral mucosa. NECK: No JVD. CARDIOVASCULAR: Regular rate and rhythm. He has a faint murmur, grade 2. No rubs. No gallops. Normal S1 and S2. RESPIRATORY: Some crackles on the right lower lung. Otherwise, no rales and no rhonchi. No wheezing. ABDOMEN: Soft, nontender, and nondistended. Bowel sounds present. No mass. No abdominal rigidity. EXTREMITIES: Edema in bilateral lower extremities and also has edematous scrotum. NEUROLOGIC: Grossly nonfocal. SKIN: No ulcer, no rash, and no cyanosis. LABORATORY DATA: White blood cell 13.8, hemoglobin 9.6, hematocrit 30.2, and platelet 224. Glucose 168, BUN 92, creatinine 1.6, sodium 134, potassium 5.9, chloride 102, PATIENT'S NAME: REYES JOE [facility] AGE: 71 Y [address] ROOM: [place] [address] LOCATION: GPCU ADMIT DATE: 10/15/2016 History & Physical DISCHARGE DATE: FAMILY PHYSICIAN: PHYSICIAN, UNKNOWN ATTENDING PHYSICIAN: SUZAN THIBODEAUX A CO2 of 26, calcium 8.4, total protein 5.3, and albumin 1.8. AST 12, ALT 10, alkaline phosphatase 82, total bilirubin 0.2, magnesium pending, and anion gap 11.9. INR 2.15. GFR 42. IMAGING STUDY: On October 15, 2016, the patient had a CT of the head without contrast from the outside facility and it showed diffuse cortical atrophy with age related chronic microvascular ischemic demyelination and no acute intracranial abnormality. CT of the abdomen and pelvis with contrast on October 13, 2016 showed complex right renal cysts. Consider further evaluation with renal ultrasound. Urinary bladder wall thickening with prominent intraluminal air. Question recent instrumentation. Mild retroperitoneal lymphadenopathy and lower lymphadenitis. Small nodule or complex cyst in the anterior liver margin. This may be too small for full characterization at this time. Chest x-ray on October 14, 2016 at an outside facility showed NG tube with tip overlying the stomach in a patient with left greater than right bibasilar atelectasis and airspace disease. ASSESSMENT/PLAN: 1. Regarding his acute kidney injury. This is from the decreased oral intake and malnutrition. I will be giving him IV fluids at a slow rate given that he has edema from hypoalbuminemia. I will be giving him normal saline at 60 mL/hr. In addition, for the hypoalbuminemia from malnutrition with edema, I will be giving him IV albumin 25% 25 g one dose now and then every 6 hours for 3 more doses and then re-evaluate again to decide if to give more or not. I will avoid Euceda catheter placement in the setting of urinary tract infection. The patient can void. I will let him void on his own to get UA and also urine culture. In addition, I will get a complete abdominal ultrasound in the morning to evaluate for any evidence of hydronephrosis and also look at any abnormality such as fistula. Further plan will depend on clinical course. 2. Regarding his hyperkalemia. This is from the acute kidney injury. EKG right now to look for any evidence of hyperkalemic changes. Give him IV calcium gluconate 1 g right now followed by IV insulin regular 10 units and give him 2 amps of dextrose 50% and also give per rectum Kayexalate 30 g x1. Check the potassium again later tonight and treat again if necessary. 3. Regarding his urinary tract infection. Sepsis order has been completed and is in the chart. However, he does not meet the criteria for systemic inflammatory response syndrome or sepsis or severe sepsis. Therefore, for urinary tract infection, I will be treating him with IV ceftriaxone, PATIENT'S NAME: REYES JOE [facility] AGE: 71 Y [address] ROOM: [place] [address] LOCATION: GPCU ADMIT DATE: 10/15/2016 History & Physical DISCHARGE DATE: FAMILY PHYSICIAN: PHYSICIAN, UNKNOWN ATTENDING PHYSICIAN: SUZAN THIBODEAUX which is also proven to be sensitive for the urinary tract infection for the last time E. coli. For his diverticulitis, I will be treating him with continue his home regimen with ceftriaxone and also with Flagyl. Follow up with urine culture. 4. Regarding his poor oral intake and malnutrition. NG tube will keep in place. Consult Nutrition for tube feeding formula in the morning. I will give him Ensure t.i.d. 1 can with each meal. Encourage oral intake with diabetic diet. 5. Regarding his prior history of DVT, on Coumadin. Continue Coumadin dosing per pharmacy for INR of 2 to 3. 6. Regarding his hemorrhoids. Could consider General Surgery if necessary. For now, I will just watch him closely. 7. Regarding his diabetes type 2. I will be giving him with q.4 hours aspart mild dose. In addition, I will give him carb count a.c. with 1 unit for 15 g carb. Check A1c. 8. Regarding his amyloidosis. Continue home steroids. 9. Regarding his hypertension. I will be continuing home medication but withholding parameter. Watch him closely for blood pressure in the setting of urinary tract infection. 10. Regarding his mild aortic stenosis. Currently, the patient is not in heart failure. Therefore can give IV fluids but at a gentle rate. No active issue at the moment. 11. Regarding his history of diverticulitis with recent perforation with abscess. As mentioned before, continue home medication with IV ceftriaxone and also IV Flagyl. Currently, there is no pain in the abdomen. Time spent in care on the day of admission 60 minutes, where 20 minutes spent on chart review and the remainder of time was spent on interview and counseling and physical examination. The consult includes going over the plan of care in detail with the patient, the patient's , and I answered all their questions to their satisfaction. In addition, I also went over the plan of care with the nurse. Further plan will depend on clinical course. MD EDUARDO OLIVA/stanley /[id number] D: [id number] T: [id number] HISTORY & PHYSICAL
--- NOTE | ~2016-10-15 | CON ---
PATIENT'S NAME: REYES JOE [facility] AGE: 71 Y [address] ROOM: [facility] [place], [place] [address] LOCATION: GPCU ADMIT DATE: 10/15/2016 Consultation DISCHARGE DATE: FAMILY PHYSICIAN: PHYSICIAN, UNKNOWN ATTENDING PHYSICIAN: SUZAN THIBODEAUX DATE OF CONSULTATION: 10/18/2016 REFERRING PHYSICIAN: Eagle Ogden MD REASON FOR CONSULT: Scattered skin issues. HISTORY OF PRESENT ILLNESS: This is a 71-year-old male patient who was admitted to [facility] with altered mental status and chronic kidney disease. He has a history of type 2 diabetes mellitus, essential hypertension, DVT, mild aortic stenosis, and diverticulitis with abscess. He currently lives in [place]. He uses a motorized scooter and is nonambulatory. He complains of generalized pain. He does not know of any active skin issues. Extremities are very edematous. He is incontinent of bowel and bladder. He reports poor oral intake. He is very short of breath with any movements. He admits pleuritic chest pain. He denies fevers. He reports he is fatigued. He notes he has hemorrhoids. He appears pleasant. PAST MEDICAL HISTORY: Type 2 diabetes mellitus, history of deep venous thrombosis, diverticulitis with abscess formation, chronic UTI secondary to colovesical fistula, amyloidosis, essential hypertension, mild aortic stenosis, kidney disease, and hematuria. PAST SURGICAL HISTORY: Coronary artery bypass grafting x5, cholecystectomy, cornea transplant, left partial hip replacement, and bilateral cataract. FAMILY HISTORY: Father from an [place]. SOCIAL HISTORY: The patient lives in [place]. He is a nonsmoker. He denies alcohol use. ALLERGIES: PENICILLIN. PATIENT'S NAME: REYES JOE [facility] AGE: 71 Y [address] ROOM: [facility] [place], [place] [address] LOCATION: GPCU ADMIT DATE: 10/15/2016 Consultation DISCHARGE DATE: FAMILY PHYSICIAN: PHYSICIAN, UNKNOWN ATTENDING PHYSICIAN: SUZAN THIBODEAUX CURRENT MEDICATIONS: Please refer to medication administration record. REVIEW OF SYSTEMS: All are negative except as mentioned above in the HPI. PHYSICAL EXAMINATION: VITAL SIGNS: Temperature 99.5, pulse 84, respirations 15, blood pressure 142/66, pulse oximetry 93% on 2 L. Height 5 feet 8 inches and weight 87.4 kg. GENERAL: The patient is alert, yet appears very fatigued and short of breath. HEENT: Oral mucosa dry. Lips cracking. NECK: No JVP. RESPIRATORY: Deferred. ABDOMEN: Edematous, but nondistended. Soft. EXTREMITIES: +3 pitting lower leg edema. Extremities are warm to touch. No open ulcers. Scattered ecchymosis to bilateral lower extremities. Thick mycotic toenails, unable to assess capillary refill. No hair growth. No erythema. Obvious footdrop, left worse than the right. SKIN: Blanchable redness to bilateral heels, no open areas. Groin folds intact. Scrotum is erythemic and very edematous. No open lesions. Dried skin tear to left elbow. Scattered ecchymosis to arms. Buttocks intact. LABORATORY DATA: White blood cell count 8.7, hemoglobin 7.8, hematocrit 24.2, platelets 215. Sodium 141, potassium 4.1, chloride 107, bicarb 25, BUN 65, creatinine 1.2, glucose 80, procalcitonin 0.23. ASSESSMENT AND PLAN: Again, this is a 71-year-old male patient who was admitted to [facility] with altered mental status. 1. Lower leg edema secondary to acute on chronic kidney disease. Will elevate and lightly compressed with Tubigrip. 2. Footdrop with a blanchable redness to heels. Elevate and put on footdrop boots. 3. Left elbow skin tear. We will initiate skin tear protocol with Vaseline gauze and Kerlix changing daily. 4. Pressure ulcer prevention. Discussed pressure relief measures. The patient is to be turned in bed q.2 hours side to side. He is certainly at high risk for pressure ulcers. I would like to thank Dr. Ogden for this consult. PATIENT'S NAME: REYES JOE [facility] AGE: 71 Y [address] ROOM: [id number] [place], [place] [address] [facility] AD[facility] DATE: 10/15/2016 Consultation DISCHARGE DATE: FAMILY PHYSICIAN: PHYSICIAN, UNKNOWN ATTENDING PHYSICIAN: SUZAN THIBODEAUX BRETT SHEN APRN FOR MD CHIDI VELEZ/stanley /[id number] d: 10/18/16 1158 t: 11/18/16 1742, CONSULTATION REPORT
--- NOTE | ~2016-10-15 | CON ---
PATIENT'S NAME: REYES JOE [facility] AGE: 71 Y [address] ROOM: [place] [address] LOCATION: GPCU ADMIT DATE: 10/15/2016 Consultation DISCHARGE DATE: FAMILY PHYSICIAN: PHYSICIAN, UNKNOWN ATTENDING PHYSICIAN: SUZAN THIBODEAUX DATE OF CONSULTATION: 10/20/2016 REFERRING PHYSICIAN: CHRISTOPHER GILLESPIE REQUESTING PHYSICIAN: Dr. Adonis Spivey REASON FOR CONSULTATION: VRE in the urine. SUBJECTIVE: Reyes is an unfortunate 71-year-old male with advanced amyloidosis and complications, whom I am asked to see today in consultation by Dr. Spivey for further evaluation and recommendations regarding VRE in the urine. He was admitted on 10/15/2016 with complaint of weakness. He was recently admitted and treated for diverticular abscess. Imaging at that time suggested an enterovesical fistula. He previously had urine cultures with E. coli and he had been treated for that; in fact, he had been on intravenous antibiotics for some time. He was sent back to [place] for rehabilitation. He was admitted here on 10/15/2016 with the above complaints. He was afebrile on admission, white count 13,800. Urinalysis did show a packed field of white cells and numerous red cells as well. A CT of the abdomen and pelvis showed prominent intraluminal air in the bladder. There was retroperitoneal lymphadenopathy. He tells me that he has tended to have burning with urination over the last several months since his diverticulitis was diagnosed. He at times has thick, creamy urine. He passes gas through the urethra. PAST MEDICAL HISTORY: Advanced amyloidosis with neurological complications, type 2 diabetes, hypertension, aortic stenosis, and prior deep venous thrombosis. ALLERGIES: PENICILLIN CAUSES NAUSEA. CURRENT MEDICATIONS: See the MAR for complete listing. He is currently on linezolid for antibiotics. SOCIAL HISTORY: PATIENT'S NAME: REYES JOE [facility] AGE: 71 Y [address] ROOM: [place] [address] LOCATION: GPCU ADMIT DATE: 10/15/2016 Consultation DISCHARGE DATE: FAMILY PHYSICIAN: PHYSICIAN, UNKNOWN ATTENDING PHYSICIAN: SUZAN THIBODEAUX No tobacco or alcohol abuse history. FAMILY HISTORY: Significant for heart disease. REVIEW OF SYSTEMS: A complete review of systems was carried out and was remarkable only as noted. OBJECTIVE: GENERAL: He appears very weak, but nontoxic. VITAL SIGNS: Temperature is 36.4, blood pressure 151/90, pulse 71. HEENT: Posterior pharynx clear, no adenopathy or thyromegaly. Cranial nerves are intact. NECK: Supple. CHEST: Few scattered rales throughout both lungs. CARDIOVASCULAR: Regular rate and rhythm with a 2/6 mid-systolic murmur at the left lower sternal border. ABDOMEN: Soft and nontender without hepatosplenomegaly or masses. EXTREMITIES: 3+ anasarca is noted. There are numerous ecchymoses on the extremities. LABORATORY DATA: Creatinine is 1.1. White count 7.2. Microbiology: Urine cultures on 10/15/2016 and 10/16/2016 show Enterococcus faecium (VRE). Prior urine culture from 09/11/2016 showed E. coli. RADIOLOGY: Radiology findings were reviewed and referred to above. Recent CT of the chest did not show significant parenchymal pathology. 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 In fact, it would be impossible to keep the bladder sterile in such a setting. The only cure for this is surgical. While he is having some urinary symptoms, I think these are from the fistula itself, not necessarily from infection per se. Ordinarily, we would not treat VRE in the urine, but would consider it a colonist. He does not have cardinal signs of infection at this time such as fever, leukocytosis, etc. Moreover, there are no good oral options for ongoing treatment or suppression, and linezolid has too many risks, particularly with his amyloidosis, in terms of hematologic toxicity. PLAN: PATIENT'S NAME: REYES JOE [facility] AGE: 71 Y [address] ROOM: [address] [place], [place] [address] [facility] AD[facility] DATE: 10/15/2016 Consultation DISCHARGE DATE: FAMILY PHYSICIAN: PHYSICIAN, UNKNOWN ATTENDING PHYSICIAN: SUZAN THIBODEAUX We will stop linezolid at this time. I would not recommend further treatment or evaluation for urinary tract infection, unless he develops stronger signs of infection such as fever, leukocytosis, etc. We would be glad to see him back on a p.r.n. basis. Thank you for the consultation. I am available to discuss the case by phone at [phone]. MD KYLE QUACH/stanley /[id number] d: 10/20/[id number] t: 10/21/16 0846, CONSULTATION REPORT
--- NOTE | ~2016-10-15 | CON ---
PATIENT'S NAME: REYES JOE [facility] AGE: 71 Y [address] ROOM: [place] [address] LOCATION: GPCU ADMIT DATE: 10/15/2016 Consultation DISCHARGE DATE: FAMILY PHYSICIAN: PHYSICIAN, UNKNOWN ATTENDING PHYSICIAN: SUZAN THIBODEAUX DATE OF CONSULTATION: 10/18/2016 PALLIATIVE CARE CONSULTATION LOCATION: [facility] 6330. REFERRING PHYSICIAN: Eagle Ogden MD REASON FOR CONSULTATION: This is a Palliative Care referral for patient refusing treatments, goals of care, and patient and family support. HISTORY OF PRESENT ILLNESS: This is a 71-year-old, frail male was admitted on 10/15/2016 with generalized weakness, decreased appetite, and dysuria. He has had frequent admissions and last admission was on 09/10/2016. The patient had a perforated diverticulitis with abscess and was treated with antibiotics, and was sent back to [place] for rehabilitation to try to get stronger to be able to have repair of his colovesicular fistula. He was scheduled for surgery next week. The patient had a decreased appetite, decreased weakness, and had went home only for a few days. He has been in the hospital and in rehabilitation for the past few weeks. The patient is currently on BiPAP, is drowsy, and has been more alert, but was admitted with decreased mental status. He was also found to have MERLIN due to decreased oral intake. He complains of pain in the lower legs and hurting all over. He has chronic back problems. No nausea or vomiting. He is alert to family. No shortness of breath with BiPAP on and tolerates BiPAP. PAST MEDICAL HISTORY: 1. Prior history of DVT. 2. Diverticulitis with abscess and perforation, treated with antibiotics. 3. Diabetes mellitus, type 2. 4. 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 5. Amyloidosis, is on continuous steroids. 6. Hypertension. 7. Mild aortic stenosis. PATIENT'S NAME: REYES JOE [facility] AGE: 71 Y [address] ROOM: [address] [address] LOCATION: GPCU ADMIT DATE: 10/15/2016 Consultation DISCHARGE DATE: FAMILY PHYSICIAN: PHYSICIAN, UNKNOWN ATTENDING PHYSICIAN: SUZAN THIBODEAUX ALLERGIES: PENICILLIN CAUSES NAUSEA. SOCIAL HISTORY: He is , has two daughters. No alcohol or smoking or illicit drug use. FAMILY HISTORY: Father at 52 with a probable GA, and mother in her 70s in her sleep. Brother had lung cancer and at the age of 55. Another brother had kidney cancer and at the age of 65. Two brothers and 1 sister are living. One brother has leukemia. PAST SURGICAL HISTORY: 1. CABG x5 in 1999. 2. Cholecystectomy. 3. Corneal transplant x4. 4. Left partial hip replacement. 5. Bilateral cataracts. 6. Colonoscopy. 7. EGD. 8. Right leg vein harvesting in 1999. REVIEW OF SYSTEMS: A complete review of systems was done and is negative except as mentioned in the HPI. CURRENT MEDICATIONS: 1. Synthroid 12.5 mcg IV daily. 2. Zosyn 3.75 mg every 6 hours. 3. Zyvox 600 mg b.i.d. 4. Alphagan ophthalmic t.i.d. 5. Pred Forte 1% 1 drop b.i.d. 6. Timoptic b.i.d. 7. Trusopt 2% 1 drop t.i.d. 8. Ativan 0.5 mg p.o. p.r.n. 9. Dulcolax suppository 10 mg per rectum p.r.n. 10. Coumadin 3 mg on Mondays, and 2 mg on Tuesday, Tuesday, Tuesday, , Tuesday, and Tuesday. 11. Deltasone 10 mg daily. 12. Flomax 0.5 mg b.i.d. 13. Florinef 1 tablet b.i.d. 14. Lopressor 50 mg b.i.d. 15. Proscar 5 mg daily. 16. Protonix 40 mg at bedtime. 17. Remeron 7.5 mg at bedtime. PATIENT'S NAME: REYES JOE [facility] AGE: 71 Y [address] ROOM: [id number] [place], [place] [address] [facility] AD[facility] DATE: 10/15/2016 Consultation DISCHARGE DATE: FAMILY PHYSICIAN: PHYSICIAN, UNKNOWN ATTENDING PHYSICIAN: SUZAN THIBODEAUX 18. Veltassa 16.8 g daily. 19. Levemir 12 units subcutaneous at bedtime. 20. NovoLog sliding scale. 21. Lidoderm 5% patch daily. 22. Morphine 1 to 2 mg every 2 hours p.r.n. pain. PHYSICAL EXAMINATION: GENERAL: This is a frail 71-year-old, male, in no acute distress. Drowsy, does arouse. VITAL SIGNS: Temperature 97.4, pulse 77, respirations 26, blood pressure 149/76, and O2 saturation is 95%. He is on BiPAP of 30%. He is 5 feet 8 inches, and weighs 192 pounds with a BMI of 29.3. SKIN: Warm and dry. Color pale. HEENT: Head; normocephalic and atraumatic. Sclerae are nonicteric. Conjunctivae are pale, pink. Mouth is pink and dry. No exudate. LYMPHATICS: No cervical adenopathy or thyromegaly. Trachea, midline. RESPIRATORY: Diminished bilaterally. No wheezes or rales. CARDIAC: Irregular rhythm. Atrial fibrillation on monitor. 3 to 4+ edema noted in lower extremities. GENITOURINARY: Scrotum is edematous. Voids per urinal. ABDOMEN: Soft. Positive bowel tones. No hepatosplenomegaly. NEUROLOGIC: Drowsy. Does follow some commands. MUSCULOSKELETAL: Appropriate range of motion. Decreased strength. EXTREMITIES: No cyanosis or deformities. Palliative performance scale is 10%, totally bed-bound, unable do any activity, total care, minimal to sips, and level of consciousness is drowsy. IMPRESSION: Weakness, fatigue, dyspnea, and early satiety. PLAN: 1. I met with , Loren and daughter. Discussed the chronic conditions, abscess of the colovesicular fistula, recurrent infections, etc,. Family has a good idea of chronic conditions and poor physical status, weaker, decreased appetite, and not getting better with antibiotics treatment. I discussed goals of care. Family is hoping to talk with the surgeon to see if surgery is an option to the patient to hopefully fix the fistula and help with the infections. Discussed the patient's values and goals. Overall, once be able to get back home with , knows that he is total care and probably will happen for a while. Patient does not wanted to go to a shelter. Discussed options of assistance at home. 2. Code status and advance directive. The patient is a full code. PATIENT'S NAME: REYES JOE [facility] AGE: 71 Y [address] [place] [facility] [place] [address] [facility] AD[facility] DATE: 10/15/2016 Consultation DISCHARGE DATE: FAMILY PHYSICIAN: PHYSICIAN, UNKNOWN ATTENDING PHYSICIAN: SUZAN THIBODEAUX Discussed code status, benefits, and burdens of a full code and physical condition. Also I gave information on advance directive, POLST (physician's order for life-sustaining treatment). We will try to discuss more with the patient when more awake and off the BiPAP. Encouraged them to talk with family physician. Answered questions and concerns. 3. Spiritual needs. Personal production manager from [facility] had been in contact with the family. [place] has been visiting. We will continue to work more on goals and discuss advance directives. Total time was 60 minutes with 50 minutes for counseling and coordination of care, discussion of goals of care, and advance directive. Thank you for allowing me to assist this patient and family. AROLDO SNELL NP FOR MD LIDIA BRYANT/stanley /[id number] d: 10/19/16 1452 t: 11/23/16 1336, CONSULTATION REPORT
--- NOTE | ~2016-10-15 | CON ---
PATIENT'S NAME: REYES JOE [facility] AGE: 71 Y [address] ROOM: [place] [id number] LOCATION: GPCU ADMIT DATE: 10/15/2016 Consultation DISCHARGE DATE: FAMILY PHYSICIAN: PHYSICIAN, UNKNOWN ATTENDING PHYSICIAN: SUZAN THIBODEAUX DATE OF CONSULTATION: 10/16/2016 REFERRING PHYSICIAN: CHRISTOPHER LIZARRAGA This is a [facility] Nephrology consultation. REASON FOR CONSULTATION: Acute kidney injury on chronic kidney disease stage 3. HISTORY OF PRESENT ILLNESS: This is a 71-year-old male patient with a longstanding history of diabetes mellitus type 2, amyloidosis, chronic UTI secondary to a colovesical fistula noted on a recent admission at [facility]. The patient was noted to have a perforation of diverticulosis as well as ATN, chronic kidney disease stage 3 and history of hemodialysis after acquiring an acute kidney injury 3 years ago at [place]. At that time, the patient did report nausea, vomiting, poor oral intake, and altered mental status that was possibly related to narcotic use. The patient was found to have acute on chronic streptococcal cystitis and mild hyperkalemia that was managed conservatively. The patient's creatinine on admission was 1.6. Today, his creatinine has come down to 1.4. Urine output has remained adequate. PAST MEDICAL HISTORY: As listed above including, 1. History of DVT on long-term anticoagulation in form of Coumadin. 2. Diverticulitis with abscess perforation, recently treated with antibiotics. 3. Diabetes type 2. 4. Chronic urinary tract infection secondary to colovesical fistula with streptococcal cystitis noted. 5. Amyloidosis on steroids. 6. Hypertension and mild aortic stenosis. ALLERGIES: PENICILLIN. CURRENT HOME MEDICATIONS: Include, 1. Levothyroxine 25 mcg daily. [facility] AGE: 71 Y [address] ROOM: [address] [place] [id number] LOCATION: GPCU ADMIT DATE: 10/15/2016 Consultation DISCHARGE DATE: FAMILY PHYSICIAN: PHYSICIAN, UNKNOWN ATTENDING PHYSICIAN: SUZAN THIBODEAUX 2. Flomax 0.4 mg twice a day. 3. Bumex 2 mg twice a day. 4. Lopressor 50 mg twice a day. 5. Fish oil 1000 mg daily. 6. Prednisone 10 mg daily. 7. Prilosec 20 mg daily. 8. Lantus 12 units subcu at bedtime. 9. Calcitriol 0.5 mcg twice a day. 10. Finasteride 5 mg daily. 11. Vitamin D3 1000 units daily. 12. Prednisolone ophthalmic drops twice a day. 13. NovoLog t.i.d. with meals. 14. Timoptic 1 drop ophthalmic twice a day. 15. Dorzolamide 10 mL one drop ophthalmic three times a day. 16. Alphagan drops one drop t.i.d. 17. Ocuflox 0.3% ophthalmic solution, one drop ophthalmic four times a day. 18. Xalatan 2.5 mL one drop ophthalmic every night at bedtime. 19. Ketorolac one drop ophthalmic three times a day. 20. Ativan 0.5 mg daily as needed. 21. Percocet 5/325 one tablet p.o. q.4 hours p.r.n. pain. 22. Polymyxin B/trimethoprim one drop ophthalmic four times a day. 23. Warfarin 2 mg daily. 24. Bisacodyl 10 mg rectal suppository as needed. 25. Rocephin 2 g IV daily. 26. Ciprofloxacin 500 mg p.o. twice a day. 27. Apresoline 20 mg as needed for high blood pressure. 28. Hydrocortisone 20 g one application topically four times a day. 29. Coumadin 3 mg every Tuesday. 30. Lactobacillus one tablet twice a day. 31. Lidoderm patch daily. 32. Flagyl 500 mg 3 times a day. 33. Milk of magnesia 30 mL p.o. t.i.d. as needed for constipation. SOCIAL HISTORY: Denies any illicit drug use, tobacco abuse, or alcohol use. FAMILY HISTORY: Reviewed and is noncontributory. There is no history of renal disease or dialysis. His mother does have some reported heart problems. PAST SURGICAL HISTORY: Coronary artery bypass grafting surgery. REVIEW OF SYSTEMS: GENERAL: Positive for fatigue and decreased oral intake, decreased appetite. PATIENT'S NAME: REYES JOE [facility] AGE: 71 Y [address] ROOM: [place] [address] LOCATION: GPCU ADMIT DATE: 10/15/2016 Consultation DISCHARGE DATE: FAMILY PHYSICIAN: PHYSICIAN, UNKNOWN ATTENDING PHYSICIAN: SUZAN THIBODEAUX HEENT: Eyes; no double vision, blurred vision. Nose; no epistaxis or rhinorrhea. Mouth; no gingival bleeding. Throat; no sore throat or cough. RESPIRATORY: Denies wheezing or hemoptysis. CARDIOVASCULAR: Denies any new chest pain or palpitations. Does have a history of coronary artery disease. GASTROINTESTINAL: He does deny any current nausea or vomiting. Does have reported decreased oral intake and appetite. He was started on TPN at an outside hospital. He has been refusing his NG tube currently. GENITOURINARY: Urinary frequency, urgency, and dysuria were reported on admission. MUSCULOSKELETAL: Positive for arthralgias and myalgias. NEUROLOGICAL: No new numbness or tingling in the upper or lower extremities. HEMATOLOGICAL: Denies any bruising or bleeding, on long-term anticoagulation. IMMUNOLOGICAL: Positive for recent history of diverticulitis with abscess and perforation as well as diagnosed UTI. PSYCHIATRIC: Positive for anxiety, does take Ativan on a p.r.n. basis. Denies any depression. PHYSICAL EXAMINATION: VITAL SIGNS: Temp 97.4, pulse 60, respirations 16, blood pressure 123/69, saturations are 90% on 1 L nasal cannula. GENERAL: On exam, this is an elderly frail male who appears in his approximate stated age. He is in no acute distress. He is alert and oriented to person, place, and time. HEENT: His head is normocephalic and atraumatic. Eyes; pupils are equal, round, reactive to light and accommodation. Nose; midline. Mouth; no gingival bleeding. Mucous membranes are dry. Throat is without lymphadenopathy or carotid bruits. No JVD. LUNGS: Lung sounds are diminished in the bases bilaterally. CARDIOVASCULAR: Regular rate and rhythm with a grade 2/6 systolic ejection murmur heard best at the right second intercostal space. GASTROINTESTINAL: Bowel sounds are positive. Soft, nondistended. EXTREMITIES: Show a trace lower extremity edema bilaterally. NEUROLOGIC: Cranial nerves 2 through 12 are grossly intact. SKIN: No new ulcers or rash noted. LABS: Glucose 100, BUN 87, creatinine 1.4. Sodium 136, potassium 5.4, chloride 104, CO2 25, calcium 8.2, albumin is 1.8. AST 12, ALT 10, alkaline phosphatase 82, mag is 4.0. INR is 2.74. Urinalysis is positive for moderate bacteria, 100 protein, negative nitrite, negative glucose, negative ketones, negative urobilinogen, positive for blood, positive for WBCs, positive for epithelial cells, few yeast noted, few WBCs in clumps, and 0-2 hyaline casts. ASSESSMENT AND PLAN: PATIENT'S NAME: REYES JOE [facility] AGE: 71 Y [address] ROOM: [id number] [place], [place] [address] LOCATION: GPCU ADMIT DATE: 10/15/2016 Consultation DISCHARGE DATE: FAMILY PHYSICIAN: PHYSICIAN, UNKNOWN ATTENDING PHYSICIAN: SUZAN THIBODEAUX 1. Acute kidney injury on chronic kidney disease stage 3. This is possibly prerenal etiology versus hemodynamic acute tubular necrosis. Dr. Lizarraga does recommend at this time that we continue IV volume expansion with crystalloid and colloids. We will continue to avoid all nephrotoxic agents and we will quantify the proteinuria in the context of severe hypoalbuminemia. We will obtain a protein creatinine ratio at this time. We will also avoid any further nephrotoxic agents. Including antibiotics to treat his UTI. 2. 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 The patient is currently on Rocephin. He does have a history of colovesical fistula. Further per primary team. 3. Hyperkalemia. Secondary to renal insufficiency. At this time, we do recommend avoiding potassium with history of ruptured diverticulosis. We will switch to Veltassa, which can be tolerated orally. Further recommendations will be forthcoming. 4. Severe hypoalbuminemia. Secondary to renal loss with amyloidosis versus plasma cell neoplasm. This patient has been seen and assessed by Dr. Lizarraga. His care is being conducted in consultation with Dr. Lizarraga as well as me. We will plan further recommendations as they are forthcoming. ISAK VANEGAS DNP, SUPERVISOR [employer] FOR MD NADIYA SMITH/modl /[id number] d: 10/18/16 1528 t: 10/25/16 1341, CONSULTATION REPORT
--- NOTE | ~2016-10-15 | DS ---
PATIENT'S NAME: HEATH [facility] AGE: 71 Y [address] ROOM: [facility] [place] [address] LOCATION: [facility] [place] ADMIT DATE: 10/15/2016 Discharge Summary DISCHARGE DATE: 11/11/2016 FAMILY PHYSICIAN: Radha Mohr MD ATTENDING PHYSICIAN: Alethea Hughes CONSULTING PHYSICIANS: Include Dr. Lizarraga, Nephrology; Dr. Adam, Infectious Disease; Kimberly Govea, Palliative Care; Cathi Diego APRN for wound care. ADMITTING PHYSICIAN: Dr. Ogden. DISCHARGING PHYSICIAN: Dr. Jessie Mccann. DISCHARGE DIAGNOSES: 1. Acute on chronic respiratory failure. 2. Pneumonia of the right lower lobe. 3. Clostridium difficile colitis. 4. Colovesicular fistula, chronic. 5. Diabetes type 2. 6. Severe protein-calorie malnutrition. 7. Amyloidosis. 8. Failure to thrive. 9. Chronic congestive heart failure. 10. Glaucoma. 11. Chronic kidney disease. 12. Hypertension. 13. Previous history of deep venous thrombosis. 14. History of chronic urinary tract infections. 15. Coronary artery disease, status post bypass grafting x5. DISCHARGE MEDICATIONS: 1. Bumex 2 mg p.o. twice daily. 2. Rocephin 2 g IM daily for 10 total days, stop date 11/17/2016. 3. Norvasc 5 mg p.o. daily. 4. Trusopt 2% one drop right eye 3 times a day. 5. Lovenox 40 mg subcutaneous daily. 6. Famotidine 20 mg p.o. daily. 7. Proscar 5 mg p.o. daily. 8. NovoLog mild insulin sliding scale. 9. Levemir 10 units subcutaneously q.h.s. 10. Lactobacillus 1 tablet p.o. twice daily. 11. Xalatan 1 drop q.evening. 12. Levothyroxine 50 mcg p.o. q.a.m. 13. Lopressor 50 mg p.o. twice daily. PATIENT'S NAME: [facility] AGE: 71 Y [address] ROOM: [facility] [place] [address] LOCATION: [facility] [place] ADMIT DATE: 10/15/2016 Discharge Summary DISCHARGE DATE: 11/11/2016 FAMILY PHYSICIAN: Radha Mohr MD ATTENDING PHYSICIAN: Alethea Hughes 14. Pred Forte one drop ophthalmically twice daily. 15. Prednisone 10 mg p.o. daily. 16. Flomax 0.4 mg p.o. b.i.d. 17. Timolol 0.5% one drop twice daily. 18. Alphagan 0.2% drops to the right eye 3 times daily. 19. Ofloxacin 0.3 ophthalmic solution 1 drop to the right eye 4 times a day. 20. Polymyxin B and trimethoprim drops one drop 4 times daily to the right eye. 21. Albuterol 2.5 mg INH q.6 hours p.r.n. shortness of breath or cough. 22. Tylenol 650 mg p.o. q.4 hours p.r.n. pain or fever. 23. Galliano 5/325 one or two tabs p.o. q.4 hours p.r.n. pain. 24. Teargen 2 drops each eye q.6 hours p.r.n. dry eye. 25. Dulcolax suppository 10 mg rectally p.r.n. constipation. 26. Lidoderm patch 5% one patch transdermal daily p.r.n. 27. Morphine 1 to 2 mg IV q.2 hours p.r.n. pain or air hunger. 28. Roxanol 20 mg/mL 5 mg p.o. or sublingual q.4 hours p.r.n. dyspnea or restlessness. 29. Ativan 0.5 mg sublingually or p.o. q.4 hours p.r.n. anxiety or restlessness. 30. Atropine 1% drops 1 to 2 drops q.4 hours p.r.n. increasing respiratory secretions. 31. Vancomycin taper 250 mg p.o. t.i.d. x7 days, then b.i.d. x7 days, then daily x7 days, then stop. HOSPITAL COURSE: Please refer to the admitting H and P dictated by Dr. Ogden for more detailed outline of the patient's presentation. The patient was basically transferred here for higher level of care secondary to acute kidney injury and decreased oral intake. He was declining in [place] where he was undergoing rehab on more recent hospitalization. The patient was found to have urinary tract infection, and therefore IV ceftriaxone was initiated, and he also had diverticulitis per CT scan, which was treated with his home regimen of Flagyl. The NG tube was kept in place initially given his poor nutrition. The patient came here and Coumadin was given his history of DVT, which was continued. He was placed on a sliding scale in regard to his insulin. Steroids were continued for his amyloidosis. The patient had no actual abdominal pain even given his history of diverticulitis with recent perforation and abscess, but again the ceftriaxone and Flagyl were continued. The patient did not meet criteria for sepsis upon admission. The patient has a long list of chronic comorbidities. The question of course was what to do in terms of management of the colovesicular fistula. The urine culture did grow out enterococcus faecium, vancomycin-resistant Enterococcus. Linezolid was then initiated on 10/17/2016. Palliative Care was asked to consult. The patient had hyperkalemia, which Renal helped to manage. The patient had some respiratory distress and was found to have aspiration pneumonia and was therefore covered with Zosyn. This case was discussed with Dr. Ibrahim, PATIENT'S NAME: REYES KENNY [facility] AGE: 71 Y [address] ROOM: [place] [address] LOCATION: [facility] [place] ADMIT DATE: 10/15/2016 Discharge Summary DISCHARGE DATE: 11/11/2016 FAMILY PHYSICIAN: Radha Mohr MD ATTENDING PHYSICIAN: Alethea Hughes A general surgeon, who did not feel that the patient was a surgical candidate. He had a lengthy discussion with the and daughter concerning the guarded prognosis. At that point, antibiotics were continued. He was on BiPAP and was also having difficulty with increased somnolence. We continued efforts to optimize his respiratory status, and family continued to hold out in hope that Mr. Montana would recover enough to be a candidate for the OR. Ultimately, Infectious Disease were asked to consult for long-term antibiotic plan given the VRE while awaiting the possibility of surgery. Dr. Adam had seen the patient in consultation on 10/20/2016, and at that time the linezolid was decided to be discontinued. Their recommendation was to hold further treatment for urinary tract infection unless he developed a stronger signs of infection such as fever, leukocytosis. The Linezolid was then indeed stopped on 10/20/2016. We continued to walk the line of fluid balance with Mr. Prado. Nephrology helped us with that as well. Continued efforts to try to optimize Mr. Prado's respiratory status with diuresis and antibiotics were slow to yield. The patient also had anasarca during this time. By , he was doing much better in terms of respiratory standpoint. Unfortunately, he developed dysuria on . At that time, linezolid was resumed. The culture was polymicrobial. The Linezolid was continued for 5 total days. The patient started having some loose stools. On October 26, stool was positive for C. diff. The patient was treated per protocol and placed in isolation and was started on Flagyl. P.o. vancomycin was added to the patient's regimen on 10/27/2016 for the C. diff. We continued to work with diuresis for his acute on chronic CHF. He was on the vancomycin for the C. diff. We continued to struggle with his underlying nutritional status of course. His volume status started improving around November 01. Again, General Surgery discussed the potential risk for attempting to remedy the colovesicular fistula. The patient continues to be a high risk patient given his malnutrition, chronic steroid use. There was talk of colostomy again. The patient was not an optimal candidate for the surgical suite. All things considered. Surgery was ultimately deferred as it was difficult to get Mr. Kenny to an optimized level. Palliative Care continued to follow with Mr. Kenny. It was becoming evident that Mr. Kenny would not be able to be cared for in his own home. Care Management worked very thoroughly and spent much time looking at options for discharge plan. The patient is truly a hospice candidate given his chronic colovesicular fistula and chronic morbidity. Ultimately, plans were made to be arranged to have Mr. Kenny transfer to the [facility] Bed on 11/11/2016 to complete his total of 10 day of IV Rocephin for treatment of a right lower lobe infiltrate. At that time, we feel that end of life care is appropriate. Multiple meetings were made with the patient himself, family members, and Dr. Mohr along with Dr. Mccann, and Palliative Care concerning his unfortunate circumstances. Thank you for allowing us to help care for Mr. Kenny. PATIENT'S NAME: REYES KENNY [facility] AGE: 71 Y [address] ROOM: [place] [address] LOCATION: [facility] [place] ADMIT DATE: 10/15/2016 Discharge Summary DISCHARGE DATE: 11/11/2016 FAMILY PHYSICIAN: Radha Mohr MD ATTENDING PHYSICIAN: Alethea Hughes AMMON FAJARDO PA-C FOR MD WILLARD MCCONNELL/modl /[id number] CC: Radha Mohr MD [facility] [address] [place] [address] d: 11/11/16 2256 t: 11/22/16 [facility]6, DISCHARGE SUMMARY
[~2016-10-15 17:00] MED LIST changes: +ACULAR5 ML OPHTH; +ATIVAN 0.5MG0.5 MG PO; +COUMADIN **IA2.5 MG PO; +PERCOCET 5-3251 EACH PO; +POLYMYXIN B-TMP10 ML OPHTH; +XALATAN2.5 ML OPHTH
[2016-10-15] MEDS ORDERED: DULCOLAX10 MG R (19:20)
[2016-10-15] MEDS ORDERED: CEFTRIAXONE2 GM IV (19:23)
[2016-10-15] MEDS ORDERED: CIPRO500 MG PO (19:24)
[2016-10-15] MEDS ORDERED: APRESOLINE10 MG PO (19:25)
[2016-10-15] MEDS ORDERED: HYDROCORTISONE20 GM TOP (19:27)
[2016-10-15] MEDS ORDERED: COUMADIN ** IA3 MG PO (19:32)
[2016-10-15] MEDS ORDERED: LACTINEX (FLORA1 TAB PO (19:33)
[2016-10-15] MEDS ORDERED: FLAGYL500 MG PO (19:34)
[2016-10-15] MEDS ORDERED: LIDODERM1 EACH TOP (19:34)
[2016-10-15] MEDS ORDERED: MILK OF MA400 MG/5 M PO (19:35)
[2016-10-15 19:57] LABS: BASOPHIL % 0.3 %; EOSINOPHIL % 0.3 %; HEMATOCRIT 30.2 % (37.0-53.0); HEMOGLOBIN 9.6 g/dL (11.0-16.0); IMMATURE GRANULOCYTE # 0.2 K/uL (0.0-0.3); IMMATURE GRANULOCYTE % 1.1 %; LYMPHOCYTE # 1.3 K/uL (0.8-4.0); LYMPHOCYTE % 9.1 %; MCH 32.4 pg (27.0-34.0); MCHC 31.8 gm/dL (32.0-36.5); MONOCYTE # 1.3 K/uL (0.0-1.0); MONOCYTE % 9.4 %; MPV 10.4 fl (9.4-12.4); NEUTROPHIL % 79.8 %; NRBC % 0 /100WBC (0-0.00); PLATELET COUNT 224 K/uL (150-450); RBC 2.96 M/uL (3.50-5.50); RDW-CV 16.1 % (11.9-14.6); WBC 13.8 K/uL (4.0-11.0)
[2016-10-15 20:01] LABS: INR - (THERAPEUTIC) 2.15 (0.92-1.07); PROTIME 22.7 SECONDS (9.8-11.4)
[2016-10-15 20:08] LABS: CALCIUM 8.4 mg/dL (8.5-10.5); CREATININE 1.6 mg/dL (0.6-1.3); TOTAL PROTEIN 5.3 g/dL (6.0-8.4)
[2016-10-15 20:09] LABS: ALBUMIN 1.8 gm/dL (3.5-5.0); ANION GAP 11.9 (10.0-19.0); POTASSIUM 5.9 mMol/L (3.7-5.1); TOTAL BILIRUBIN 0.2 mg/dL (0.0-1.5)
--- NOTE | 2016-10-15 20:51 | NUR ---
Patient is 71 yo male admitted this evening for altered mental changes that were new for him. He has been in the hospital in [place] for IV antibiotics. 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 He has many comorbidities and is a very pleasant man to visit with. is here also. patient has a right upper arm PICC line without erythema or edema noted at site. Education is given as documented. patient and deny questions. patient's call light is within reach. denies needs at this time. pneumatics are on bilat calves without diff. report is given to FLORIDA Morris.
[2016-10-15 22:15] LABS: BILIRUBIN URINE NEGATIVE (NEGATIVE); BLOOD URINE 50 /UL (NEGATIVE); COLOR URINE YELLOW (YELLOW); GLUCOSE URINE NEGATIVE (NEGATIVE); KETONE URINE NEGATIVE (NEGATIVE); LEUKOCYTES URINE 500 /UL (NEGATIVE); NITRITE URINE NEGATIVE (NEGATIVE); PROTEIN URINE 100 mg/dL (NEGATIVE); TURBIDITY URINE 4+ (CLEAR); UROBILINOGEN URINE NORMAL (NORMAL)
[2016-10-15 22:42] LABS: WBC URINE FULL FIELD #/HPF (NEGATIVE)
[2016-10-15 22:47] LABS: BACTERIA URINE MANY (NEGATIVE)
[2016-10-15 22:52] LABS: EPITHELIAL URINE 0-2 #/HPF (NEGATIVE)
[2016-10-15 22:59] LABS: YEAST URINE MANY (NEGATIVE)
[2016-10-16 01:21] LABS: ANION GAP 11.7 (10.0-19.0); CALCIUM 8.6 mg/dL (8.5-10.5); CREATININE 1.6 mg/dL (0.6-1.3); POTASSIUM 5.7 mMol/L (3.7-5.1)
--- NOTE | 2016-10-16 03:09 | NUR ---
Pt a/o x3. is slow to respond. vss on 1L nc, afebrile. single lumen picc in SHOAIB. NS at 60ml/hr infusing. Has received- 40mg Protonix ivp, albumin 25% x2, 10units novolin r ivp x2, 2 amps d50 ivp x2, kayxelate enema x2, iv flagyl, and iv rocephin. is a full lift pt. q2 turn. bottom is dark red and non blanchable- has spot on coccyx that is about to open up. multiple areas of edema. r flank has edema blisters/fluid bubbles. groins red. bilat arms swelling/red/bruising/scabs, right lower arm is red and warm to touch. BLE- swelling, dry spots/redness/scabs/scars/bruising on both. both heels are "mushy" and have some areas of concerns. bruising under toes. scrotum and penis are very swollen. currently are elevated on towel. torso front and back have "rash" like look- pt states this is chronic for him and he is on steroids for it. Plan: con't current plan of care
[2016-10-16 05:53] LABS: ANION GAP 12.2 (10.0-19.0); CALCIUM 8.5 mg/dL (8.5-10.5); CREATININE 1.5 mg/dL (0.6-1.3); POTASSIUM 5.2 mMol/L (3.7-5.1)
--- NOTE | 2016-10-16 11:16 | NUR ---
A-CONSULT RECEIVED FOR TF RECOMMENDATIONS PT ADMITTED FROM OTHER FACILITY W/NG IN PLACE. NG WAS PLACED D/T POOR ORAL INTAKE; PT DOES NOT HAVE DIFF. SWALLOWING. PRIOR TO NG PLACEMENT, PT WAS ON PARENTERAL NUTRITION. VISITED W/PT AND PT'S . PT STATES HE DOES NOT HAVE AN APPETITE. HE HAS NOT BEEN EATING MUCH AND HE DRINKS A LITTLE BIT OF FLUIDS. PT'S REPORTS THAT PT SAID HE WAS HUNGRY THIS AM. PT IS CURRENTLY NPO FOR AN ULTRASOUND. MULTIPLE SKIN ISSUES: SPOT ON COCCYX VERY CLOSE TO OPENING, BOTH HEELS ARE BOTH MUSHY, PER CHART REVIEW. PT IS A DIABETIC. WT IS UP FROM PREVIOUS ADMIT IN SEPTEMBER; MOST LIKELY R/T FLUID. HT: 68 IN. WT: 87.4 KG. UBW (PER PT): 180 LBS (82 KG). BMI: 29.3. PT ADMITTED W/EDEMA TO BLE, SCROTUM, AND PENIS. LABS: NA 135, K+ 5.2, GLU 191, BUN 91, DATA INTEGRITY SPECIALIST 1.5, ALB 1.8. ACCU CHECKS: 159-235 MEDS: PROTONIX, DELTASONE, NOVOLOG (1 UNIT/15 GM), FLAGYL, ROCEPHIN, NOVOLOG (MILD SS), ATIVAN, LACTINEX, LEVEMIR, PRN BOWEL MEDS. DIET RX: CONSISTENT CARB AND TF EST NUTR NEEDS: 0569-6432 KCALS (25-30 KCALS/KG) 104-131 GM PROTEIN (1.2-1.5 GM/KG) FLUID PER D-AT NUTRITION RISK W/INADEQUATE ORAL INTAKE R/T ALTERED APPETITE AEB NG TUBE, NEED FOR ENTERAL NUTRITION, PT REPORT. I-RECOMMEND GLUCERNA 1.2 AT A GOAL RATE OF 85 ML/HR. THIS WILL PROVIDE 2448 2448 KCALS, 122 GM PROTEIN, AND 1642 ML FREE WATER. GOAL RATE WILL MEET 100% OF PT'S EST NUTR NEEDS. M/E-GOAL: PT WILL TOLERATE TF WITHOUT DIFFICULTY 1)F/U PO INTAKE, TF, AND POC IN 3-5 DAYS 2)ASSIST NEEDED
[2016-10-16 12:42] LABS: ANION GAP 11.2 (10.0-19.0); CALCIUM 8.4 mg/dL (8.5-10.5); CREATININE 1.4 mg/dL (0.6-1.3); POTASSIUM 5.2 mMol/L (3.7-5.1)
[2016-10-16 12:47] LABS: INR - (THERAPEUTIC) 2.74 (0.92-1.07); PROTIME 29.1 SECONDS (9.8-11.4)
[2016-10-16 12:49] LABS: HEMATOCRIT 24.2 % (37.0-53.0); MCH 33.5 pg (27.0-34.0); MCHC 32.6 gm/dL (32.0-36.5); MCV 102.5 fl (83.0-98.0); MPV 10.7 fl (9.4-12.4); RBC 2.36 M/uL (3.50-5.50); WBC 9.1 K/uL (4.0-11.0)
[2016-10-16 12:52] LABS: HEMOGLOBIN 7.9 g/dL (11.0-16.0)
[2016-10-16 14:30] LABS: BILIRUBIN URINE NEGATIVE (NEGATIVE); BLOOD URINE 25 /UL (NEGATIVE); COLOR URINE YELLOW (YELLOW); GLUCOSE URINE NEGATIVE (NEGATIVE); KETONE URINE NEGATIVE (NEGATIVE); LEUKOCYTES URINE 500 /UL (NEGATIVE); NITRITE URINE NEGATIVE (NEGATIVE); PROTEIN URINE 100 mg/dL (NEGATIVE); TURBIDITY URINE 1+ (CLEAR); UROBILINOGEN URINE NORMAL (NORMAL)
[2016-10-16 14:49] LABS: WBC URINE FULL FIELD #/HPF (NEGATIVE)
[2016-10-16 14:50] LABS: BACTERIA URINE MODERATE (NEGATIVE); EPITHELIAL URINE 0-2 #/HPF (NEGATIVE); HYALINE CAST URINE 0-2 #/LPF (NEGATIVE); WBC CLUMPS URINE FEW (NEGATIVE); YEAST URINE FEW (NEGATIVE)
--- NOTE | 2016-10-16 18:34 | NUR ---
PATIENT STATES HE DOES NOT WANT TO EAT HE DOES NOT FEEL LIKE IT, BLOOD SUGAR GOT DOWN TO 78, JUICE WAS GIVEN AND BROUGHT HIM A CANDY BAR. DIABETIC EDUCATION MAY NEED TO SEE PATIENT AND . REPOSITIONED WHEN PATIENT WOULD ALLOW.
[2016-10-16 19:38] LABS: ANION GAP 12.4 (10.0-19.0); CALCIUM 8.2 mg/dL (8.5-10.5); CREATININE 1.5 mg/dL (0.6-1.3); POTASSIUM 5.4 mMol/L (3.7-5.1)
[2016-10-17 01:32] LABS: CALCIUM 8.4 mg/dL (8.5-10.5); CREATININE 1.4 mg/dL (0.6-1.3)
--- NOTE | 2016-10-17 05:14 | NUR ---
Pt alert. drowsy but arousable. vss on 2L nc, afebrile all noc. ns at 60, recieved 1L at 125ml/hr-finished now. con't on albumin q6 hours. q4 fsbs- has not needed coverage. did not receive levimir as his blood sugar was low 100 when it was due-refused. ordered another kayexalate enema-pt refused. attempted to run tube feed ran for about 3 hours at 20mls- received total of 96ml and pt complained of feeling full- and then refused tube feed. q2 turn- refuses off and on. plan-palliative consult ordered
[2016-10-17 06:29] LABS: ANION GAP 10.9 (10.0-19.0); CALCIUM 8.2 mg/dL (8.5-10.5); CREATININE 1.3 mg/dL (0.6-1.3); POTASSIUM 4.9 mMol/L (3.7-5.1)
[2016-10-17 06:52] LABS: BASOPHIL % 0.2 %; EOSINOPHIL # 0.1 K/uL (0.0-0.5); EOSINOPHIL % 0.7 %; IMMATURE GRANULOCYTE # 0.1 K/uL (0.0-0.3); IMMATURE GRANULOCYTE % 0.6 %; LYMPHOCYTE # 1.3 K/uL (0.8-4.0); LYMPHOCYTE % 15.5 %; MCH 33.3 pg (27.0-34.0); MCHC 32.1 gm/dL (32.0-36.5); MCV 103.9 fl (83.0-98.0); MONOCYTE % 12.1 %; MPV 10.9 fl (9.4-12.4); NEUTROPHIL # (ANC) 5.8 K/uL (1.4-9.0); NEUTROPHIL % 70.9 %; NRBC % 0 /100WBC (0-0.00); PLATELET COUNT 202 K/uL (150-450); RBC 2.31 M/uL (3.50-5.50); RDW-CV 15.9 % (11.9-14.6); WBC 8.2 K/uL (4.0-11.0)
[2016-10-17 06:55] LABS: HEMOGLOBIN 7.7 g/dL (11.0-16.0)
[2016-10-17 06:57] LABS: INR - (THERAPEUTIC) 2.53 (0.92-1.07); PROTIME 26.8 SECONDS (9.8-11.4)
[2016-10-17 10:11] LABS: BICARBONATE 25.8 mmol/L (18.0-23.0); PCO2 55 mmHg (35-45); PO2 61 mmHg (80-90)
--- NOTE | 2016-10-17 11:00 | NUR ---
CONSULT RECEIVED TO START NG NUTRITION. SPOKE W/PT'S RN TODAY AND TF ORDER HAS BEEN CANCELLED AT THIS, PER PT REQUEST D/T C/O SOB. PT IS CURRENTLY ON BIPAP. DIET RX: CONSISTENT CARB. WILL ADD GLUCERNA TID W/MEALS TO PROVIDE ADDITIONAL NUTRIENTS.
[2016-10-17 13:10] LABS: ANION GAP 10.4 (10.0-19.0); CALCIUM 8.3 mg/dL (8.5-10.5); CREATININE 1.3 mg/dL (0.6-1.3); POTASSIUM 4.4 mMol/L (3.7-5.1)
--- NOTE | 2016-10-17 18:59 | NUR ---
PATIENT WAS WHEEZING THIS AM, RECEIVED LASIX AND A DUONEB, PLACED ON BIPAP AND HAS RESTED WELL THROUGOUT THE DAY. PATIENT ALSO WENT DOWN FOR A CT OF CHEST. DOBHOFF WAS REMOVED PER ORDER. SPEECH THERAPY STATED LONG HE IS ON BIPAP THEY DID NOT WANT HIM TO HAVE ANYTHING PO. THEY WILL CHECK BACK WITH HIM TOMORROW AND ASSESS THE SITUATION THEN.
[2016-10-17 20:35] LABS: ANION GAP 11.3 (10.0-19.0); CALCIUM 8.3 mg/dL (8.5-10.5); CREATININE 1.2 mg/dL (0.6-1.3); POTASSIUM 4.3 mMol/L (3.7-5.1)
[2016-10-18 01:06] LABS: ANION GAP 12.2 (10.0-19.0); CALCIUM 8.2 mg/dL (8.5-10.5); CREATININE 1.2 mg/dL (0.6-1.3); POTASSIUM 4.2 mMol/L (3.7-5.1)
--- NOTE | 2016-10-18 05:38 | NUR ---
Significant Event: PT A/O X3 AND DROWSY AT TIMES. VSS. SBP 120-140 HR 70-80 AFEBRILE PT ON BIPAP 35% FIO2 ALL THROUGH THIS SHIFT, DID NOT WANT TO REMOVE MASK SATS 95%. PT IN CONTACT ISOLATION FOR VRE IN URINE. PT DOES NOT LIKE TO BE REPOSITIONED, C/O LEG PAIN, MORPHINE GIVEN X2 PRN ORDER OF 1-2 MG Q2HRS IV FOR PAIN. PT HAS SINGLE LUMEN RIGHT UPPPER ARM, CONTINUES WITH IV ANTIBIOTICS, TKO 15ML/HR. PT BUN CONTINUES TO DECREASE. PT IS FULL LIFT. PT IS NPO, MAY NEED A MODIFIED BARRIUM SWALLOW. PT FAMILY IN ROOM. PT 3+EDEMA IN ARMS, LEGS AND SCROTUM IS SWOLLEN. PT HAD LOOSE BM X1. Follow up: FOLLOW CARE PLAN.
[2016-10-18 05:43] LABS: ANION GAP 13.1 (10.0-19.0); CALCIUM 8.1 mg/dL (8.5-10.5); CREATININE 1.2 mg/dL (0.6-1.3); POTASSIUM 4.1 mMol/L (3.7-5.1)
[2016-10-18 05:56] LABS: BASOPHIL % 0.3 %; EOSINOPHIL # 0.1 K/uL (0.0-0.5); EOSINOPHIL % 1.5 %; HEMATOCRIT 24.2 % (37.0-53.0); IMMATURE GRANULOCYTE # 0.1 K/uL (0.0-0.3); IMMATURE GRANULOCYTE % 0.9 %; LYMPHOCYTE # 1.3 K/uL (0.8-4.0); LYMPHOCYTE % 15.3 %; MCH 33.1 pg (27.0-34.0); MCHC 32.2 gm/dL (32.0-36.5); MCV 102.5 fl (83.0-98.0); MONOCYTE # 1.2 K/uL (0.0-1.0); MPV 10.7 fl (9.4-12.4); NEUTROPHIL # (ANC) 5.9 K/uL (1.4-9.0); NRBC % 0 /100WBC (0-0.00); PLATELET COUNT 215 K/uL (150-450); RBC 2.36 M/uL (3.50-5.50); WBC 8.7 K/uL (4.0-11.0)
[2016-10-18 06:00] LABS: HEMOGLOBIN 7.8 g/dL (11.0-16.0)
[2016-10-18 06:02] LABS: INR - (THERAPEUTIC) 2.58 (0.92-1.07); PROTIME 27.4 SECONDS (9.8-11.4)
[2016-10-18 13:00] LABS: BICARBONATE 25.8 mmol/L (18.0-23.0)
[2016-10-18 13:01] LABS: PCO2 38 mmHg (35-45); PO2 118 mmHg (80-90)
--- NOTE | 2016-10-18 16:06 | NUR ---
Significant Event: A/O. Slept much of the shift but does arouse easily and voices needs. C/O achy legs, tubigrip to bilateral legs as well as foot drop boots. Repo q2h. Full lift. Remains NPO, another speech consult placed. Hydrocortisone started today. Attempted O2 at 2L/NC today but sats dropped to 68% during repositioning, bipap has been on for most of the shift. FiO2 at 40%. PICC to R) UA. Palliative consult, remains full code. Follow up:
[2016-10-18 19:39] LABS: ANION GAP 12.2 (10.0-19.0); CREATININE 1.2 mg/dL (0.6-1.3); POTASSIUM 4.2 mMol/L (3.7-5.1)
--- NOTE | 2016-10-19 05:52 | NUR ---
Significant Event: Patient alert and oriented x3. HR 60s-90s. All other vital signs stable. On BiPAP with 30-40% FiO2 at beginning of shift. BiPAP removed and 2L O2 per NC applied. Patient tolerating well. Slept well until BiPAP removed, then awake for most of the shift. Tubigrip off at HS. Bilateral foot drop boots continue. Edema continues. Attempted to turn patient Q2. Patient allowed x2. Refused every other time. Complained of pain to knees, face, and "everywhere" throughout shift. 2mg Morphine given x3 with minimal relief. PICC continues to right upper arm. Good uop. Full lift. Remains NPO. Follow up: Speech consult today?
[2016-10-19 06:01] LABS: INR - (THERAPEUTIC) 2.2 (0.92-1.07); PROTIME 23.3 SECONDS (9.8-11.4)
[2016-10-19 06:09] LABS: CALCIUM 8.1 mg/dL (8.5-10.5); CREATININE 1.1 mg/dL (0.6-1.3)
[2016-10-19 06:41] LABS: BASOPHIL % 0.1 %; IMMATURE GRANULOCYTE # 0.1 K/uL (0.0-0.3); IMMATURE GRANULOCYTE % 0.8 %; LYMPHOCYTE # 0.5 K/uL (0.8-4.0); LYMPHOCYTE % 7.4 %; MCH 33.2 pg (27.0-34.0); MCHC 32.5 gm/dL (32.0-36.5); MCV 102.1 fl (83.0-98.0); MONOCYTE # 0.3 K/uL (0.0-1.0); MONOCYTE % 4.6 %; MPV 10.6 fl (9.4-12.4); NEUTROPHIL # (ANC) 6.2 K/uL (1.4-9.0); NEUTROPHIL % 87.1 %; NRBC % 0 /100WBC (0-0.00); PLATELET COUNT 226 K/uL (150-450); RBC 2.35 M/uL (3.50-5.50); RDW-CV 15.7 % (11.9-14.6); WBC 7.2 K/uL (4.0-11.0)
[2016-10-19 06:42] LABS: HEMOGLOBIN 7.8 g/dL (11.0-16.0)
--- NOTE | 2016-10-19 09:52 | NUR ---
A - NUTRITION F/U. GLU 91, BUN/MANAGER OF DIGITAL 56/1.1. PT W/ 3+ EDEMA TO ROBIN ARMS, 2-4+ EDEMA TO BLE. GOOD UOP. PT IS NPO D/T SWALLOWING DIFFICULTIES. EST NEEDS: 2771-4375 KCALS, 104-131 GM PROTEIN, 1 ML/KCAL FLUIDS. ST CONSULT TODAY. D - AT RISK W/ INADEQUATE ORAL INTAKE R/T DIFFICULTY SWALLOWING AEB NPO STATUS. I - GOAL: TBD M/E - 1) IF PT FAILS SWALLOW REC TF W/ GLUCERNA 1.2 TO RUN AT GOAL RATE OF 85 ML/HR = 2448 KCALS, 122 GM PROTEIN, 1642 ML FREE H20. 2) WILL OFFER APPROPRIATE SUPPLEMENT IF DIET IS ORDERED. 3) F/U IN 1-2 DAYS.
--- NOTE | 2016-10-19 16:25 | NUR ---
Introduced self and role of care management to patient, his and a couple of daughters. Patient lives in [place] with his . Family says he is doing better today. Last time he was here, he went to [facility] for a few days before going home. They would like him to do that again. Dr. Mohr in [place] is his PCP, but they say Dr. Ulloa (the 's ) followed him in [place] last time. [facility] left for Yaw coordinator at [place]. Yaw called back and said they would not be able to consider him this week due to staffing issues and his level of care needs. She says to call on Tuesday or Tuesday if still need a place and they can consider him at that time. She says they would like family to at least put him on the waiting list at the [facility], as they feel [facility] is more appropriate for him. Will follow.
--- NOTE | 2016-10-19 17:02 | NUR ---
Significant event: A&Ox3, VSS on 1-2L. Pt in contact isolation for VRE in urine. Edema to bilateral legs, ankles, feet, forearms, and scrotum. Leg pumps and foot drop boots to bilateral lower extremities. IV lasix administered at 1230. Speech consult today, regular diet ordered. PO meds given this afternoon. IV fluids d/c'd, right upper arm PICC SL and flushes well. Accuchecks q4h with no treatment today. No complaints of pain today. No BM's, adequate UOP. Full lift, up in chair with PT. Follow up: Continue to monitor
[2016-10-19 18:16] LABS: ANION GAP 13.7 (10.0-19.0); CALCIUM 7.9 mg/dL (8.5-10.5); CREATININE 1.1 mg/dL (0.6-1.3); POTASSIUM 3.7 mMol/L (3.7-5.1)
--- NOTE | 2016-10-20 03:37 | NUR ---
Pt A&Ox4, forgetful at times. VSS on 2L O2 throughout shift. Voiding well, taking PO fair, needs encouragement. Turn q2hrs as tolerated by pt; pt refuses at times. Morphine given x1 for pain to right hand and BLEs with good relief. Family at bedside. Cooperative with cares.
[2016-10-20 05:15] LABS: ALBUMIN 2.5 gm/dL (3.5-5.0); ANION GAP 11.7 (10.0-19.0); CALCIUM 7.9 mg/dL (8.5-10.5); CREATININE 1.1 mg/dL (0.6-1.3); PHOSPHORUS 3.7 mg/dL (2.5-4.9); POTASSIUM 3.7 mMol/L (3.7-5.1)
[2016-10-20 05:42] LABS: INR - (THERAPEUTIC) 2.35 (0.92-1.07); PROTIME 24.9 SECONDS (9.8-11.4)
--- NOTE | 2016-10-20 11:45 | NUR ---
Spoke with patient and several daughters. They say they have DME questions. There question is they think he needs a head sling to hold him mouth closed when he uses hi CPAP at home. Encouraged them to talk with resp therapy or the provider of their CPAP as not sure if can use a chin sling with CPAP. Talked with them regarding information from Yaw at [facility]. says they don't want him to go to a [facility]. Told her I understand that is their preference, but I am passing on what SB requested and it is possible [facility] will not be able to accept him depending on when he is ready and their staffing. Will follow.
--- NOTE | 2016-10-20 12:31 | NUR ---
NUTRITION F/U: DIET ADVANCED TO REGULAR. WILL START ENSURE ENLIVE TID W/MEALS TO PROVIDE ADDITIONAL NUTRIENTS. PT HAS TAKEN ENSURE IN THE PAST. F/U PO INTAKE, SUPPLEMENT, AND POC IN 2-3 DAYS
--- NOTE | 2016-10-20 17:35 | NUR ---
Significant event: Patient is alert and oriented. Can be forgetful at times. Continues to be in contact isolation for VRE in urine. ID consulted today for long term care phlebotomist plan. Edema present to bilateral LE, UE, and scrotum. Accuchecks changed to ACHS. Wean O2 to keep sats >90. Mid 90's on 1L. No complaints of pain. Patient often refuses repositioning. Family in room most of day. Patient calm and cooperative with cares.
[2016-10-20 20:50] LABS: ANION GAP 11.8 (10.0-19.0); CALCIUM 7.9 mg/dL (8.5-10.5); CREATININE 1.3 mg/dL (0.6-1.3); POTASSIUM 3.8 mMol/L (3.7-5.1)
--- NOTE | 2016-10-21 05:17 | NUR ---
Significant Event:No significant changes this shift. Requested and allowed repositioning at least 3 times. at the bedside and helps with patient cares. VSS on 1-2L/NC. Increased when sleeping d/t patient sleeping with his mouth open. No BM noted. Follow up:Continue with POC.
[2016-10-21 06:20] LABS: INR - (THERAPEUTIC) 2.46 (0.92-1.07); PROTIME 26.1 SECONDS (9.8-11.4)
[2016-10-21 06:26] LABS: ANION GAP 11.7 (10.0-19.0); CALCIUM 7.7 mg/dL (8.5-10.5); CREATININE 1.1 mg/dL (0.6-1.3); POTASSIUM 3.7 mMol/L (3.7-5.1)
--- NOTE | 2016-10-21 19:24 | NUR ---
Significant Event: ALERT & ORIENTED. FORGETFUL AT TIMES. VSS, AFEBRILE, ON 1L O2. REFUSES REPOSITIONING. R)PICC LINE SL. AROLDO LANDEROS WITH PALLIATIVE CARE TRIED TO CONTACT DR.ANNETTE RUANO TO ENCOURAGE SPEAKING WITH FAMILY. 1200 ML FLUID RESTRICTION YET NEED TO ENCOURAGE CALORIC INTAKE, POOR APPETITE. 425 URINE OUTPUT AFTER 40 MG IV LASIX.
[2016-10-22 03:14] LABS: ALBUMIN 2.6 gm/dL (3.5-5.0); ANION GAP 10.9 (10.0-19.0); CALCIUM 7.9 mg/dL (8.5-10.5); CREATININE 1.1 mg/dL (0.6-1.3); PHOSPHORUS 2.7 mg/dL (2.5-4.9); POTASSIUM 3.9 mMol/L (3.7-5.1)
[2016-10-22 03:30] LABS: HEMATOCRIT 27.4 % (37.0-53.0); HEMOGLOBIN 8.8 g/dL (11.0-16.0); IMMATURE GRANULOCYTE # 0.1 K/uL (0.0-0.3); IMMATURE GRANULOCYTE % 0.9 %; LYMPHOCYTE # 0.8 K/uL (0.8-4.0); LYMPHOCYTE % 10.2 %; MCH 33.2 pg (27.0-34.0); MCHC 32.1 gm/dL (32.0-36.5); MCV 103.4 fl (83.0-98.0); MONOCYTE # 0.5 K/uL (0.0-1.0); MONOCYTE % 6.6 %; MPV 10.2 fl (9.4-12.4); NEUTROPHIL # (ANC) 6.2 K/uL (1.4-9.0); NEUTROPHIL % 82.3 %; NRBC % 0 /100WBC (0-0.00); RBC 2.65 M/uL (3.50-5.50); RDW-CV 15.4 % (11.9-14.6); WBC 7.5 K/uL (4.0-11.0)
[2016-10-22 03:32] LABS: PLATELET COUNT 300 K/uL (150-450)
[2016-10-22 03:36] LABS: INR - (THERAPEUTIC) 2.21 (0.92-1.07); PROTIME 23.4 SECONDS (9.8-11.4)
--- NOTE | 2016-10-22 04:18 | NUR ---
Significant events: Pt A/Ox3. VSS, SBP 150-170's, on 1-3L/NC. Morphine x2, ativan x1. Repositioned as pt allows. Foot drop boots on. Edema to lower extremeties, elevated. 200mL urine out. at bedside. Continue to monitor.
--- NOTE | 2016-10-22 11:31 | NUR ---
A - NUTRITION F/U. A/O X 3, FORGETFUL. GLU 171, BUN/ELECTRICAL MAINTENANCE MAN 60/1.1, ALB 2.6. WT UP 17# SINCE ADMIT; PT W/ 1-2+ BUE AND 2-3+ BLE EDEMA. DIET: DIABETIC W/ 1200 ML FR. INTAKE 0-25%. OFFERED ENSURE TID W/ MEALS. PALLIATIVE CARE ON BOARD. D - AT RISK W/ INADEQUATE ORAL INTAKE R/T DECREASED APPETITE AEB INTAKE RECORD. I - GOAL: 25-50% INTAKE. M/E - 1) PT IS NOT ABLE TO MEET NUTRIENT NEEDS ORALLY. PLEASE CONSULT IF ENTERAL SUPPORT IS DESIRED. 2) CONT TO ENCOURAGE MEAL AND SUPPLEMENT INTAKE. 3) F/U IN 3-5 DAYS.
--- NOTE | 2016-10-22 13:00 | NUR ---
Spoke with Yaw at [facility] in [place] and referral faxed. She says she will review information with their team and get back to me. Will follow.
--- NOTE | 2016-10-22 19:48 | NUR ---
Significant Event: A&0. SBP 170-180, ADDED NORVASC. HR 70'S. AFEBRILE. 1L O2. 420 URINE OUTPUT. POOR INTAKE. FULL LIFT, REFUSED TO SIT EDGE OF BED WITH THERAPY. LARGE BM TODAY. R)PICC. ACCDEEP HUTCHISON.
[2016-10-23 04:56] LABS: ALBUMIN 2.5 gm/dL (3.5-5.0); PHOSPHORUS 2.4 mg/dL (2.5-4.9)
[2016-10-23 05:00] LABS: BASOPHIL % 0.1 %; EOSINOPHIL % 0.1 %; HEMATOCRIT 28.2 % (37.0-53.0); HEMOGLOBIN 8.9 g/dL (11.0-16.0); IMMATURE GRANULOCYTE # 0.1 K/uL (0.0-0.3); IMMATURE GRANULOCYTE % 1.3 %; MCH 32.7 pg (27.0-34.0); MCHC 31.6 gm/dL (32.0-36.5); MCV 103.7 fl (83.0-98.0); MONOCYTE # 0.7 K/uL (0.0-1.0); MONOCYTE % 8.2 %; MPV 9.6 fl (9.4-12.4); NEUTROPHIL # (ANC) 6.5 K/uL (1.4-9.0); NEUTROPHIL % 78.3 %; NRBC % 0 /100WBC (0-0.00); PLATELET COUNT 292 K/uL (150-450); RBC 2.72 M/uL (3.50-5.50); RDW-CV 15.2 % (11.9-14.6); WBC 8.3 K/uL (4.0-11.0)
[2016-10-23 05:05] LABS: INR - (THERAPEUTIC) 2.14 (0.92-1.07); PROTIME 22.6 SECONDS (9.8-11.4)
--- NOTE | 2016-10-23 05:33 | NUR ---
Significant Event: PATIETN A/0 X 3, NO MORE SIGNS OF ALTERED MENTAL STATUS. HAS REMIANED IN BED TURNED Q2. BLIND IN RIGHT EYE. CONTACT ISO FOR VRE. SBP'S 150-160'S, HR SINUS IN 70'S. 02 TITRATED TO 2L WHEN SLEEPING WAS A 1L DAY, AFEBRILE, ALL OTHER VSS. CRACKLES HEARD IN BILATERAL BASES. 50425 ML FLUID RESTRICTION, HAD NO PROBLEMS MAINTAINING THIS. FOOT DROP BOOTS TO BOTH FEET. DID HAVE 600 UOP. 2 MG MORPHINE X 1 AT 0430 WITH RELIEF NOTED. AT BEDSIDE ALL EVENING. Follow up:
--- NOTE | 2016-10-23 06:50 | NUR ---
Significant Event: A/OX 3 DURING SHIFT. TURNED Q2. VSS. SUPRAPUBIC CATH 800 UOP. WOUND VAC INTACT TO RIGHT FOOT. 1 NORCO GIVEN X 2 WITH RELIEF NOTED EACH TIME. Follow up:
[2016-10-23 11:15] LABS: BILIRUBIN URINE NEGATIVE (NEGATIVE); BLOOD URINE 150 /UL (NEGATIVE); COLOR URINE YELLOW (YELLOW); GLUCOSE URINE NEGATIVE (NEGATIVE); KETONE URINE NEGATIVE (NEGATIVE); LEUKOCYTES URINE 500 /UL (NEGATIVE); NITRITE URINE NEGATIVE (NEGATIVE); PROTEIN URINE 500 mg/dL (NEGATIVE); SPEC GRAVITY URINE 1.015 (1.003-1.035); TURBIDITY URINE 2+ (CLEAR); UROBILINOGEN URINE NORMAL (NORMAL)
[2016-10-23 11:26] LABS: WBC URINE 20-50 #/HPF (NEGATIVE)
[2016-10-23 11:27] LABS: EPITHELIAL URINE NEGATIVE #/HPF (NEGATIVE)
[2016-10-23 11:28] LABS: BACTERIA URINE RARE (NEGATIVE); YEAST URINE FEW (NEGATIVE)
--- NOTE | 2016-10-23 18:52 | NUR ---
PATIENT WAS TALKATIVE WHILE AWAKE. HE IS OFF HIS FLUID RESTRICTION AND DRANK HIS ENTIRE BREAKFAST. HE HAD A BOWEL MOVEMENT AND HELPED TURN SELF A LITTLE BIT.
[2016-10-24 04:38] LABS: INR - (THERAPEUTIC) 2.38 (0.92-1.07); PROTIME 25.2 SECONDS (9.8-11.4)
[2016-10-24 04:46] LABS: ALBUMIN 2.4 gm/dL (3.5-5.0); ANION GAP 8.1 (10.0-19.0); CALCIUM 7.8 mg/dL (8.5-10.5); CREATININE 0.9 mg/dL (0.6-1.3); PHOSPHORUS 2.2 mg/dL (2.5-4.9); POTASSIUM 4.1 mMol/L (3.7-5.1)
[2016-10-24 04:48] LABS: EOSINOPHIL % 0.2 %; HEMATOCRIT 27.9 % (37.0-53.0); HEMOGLOBIN 8.9 g/dL (11.0-16.0); IMMATURE GRANULOCYTE # 0.1 K/uL (0.0-0.3); IMMATURE GRANULOCYTE % 1.1 %; LYMPHOCYTE # 1.4 K/uL (0.8-4.0); LYMPHOCYTE % 14.2 %; MCHC 31.9 gm/dL (32.0-36.5); MCV 103.3 fl (83.0-98.0); MONOCYTE # 0.9 K/uL (0.0-1.0); MPV 9.8 fl (9.4-12.4); NEUTROPHIL # (ANC) 7.5 K/uL (1.4-9.0); NEUTROPHIL % 75.5 %; NRBC % 0 /100WBC (0-0.00); PLATELET COUNT 292 K/uL (150-450); RDW-CV 15.1 % (11.9-14.6); WBC 9.9 K/uL (4.0-11.0)
--- NOTE | 2016-10-24 05:23 | NUR ---
Significant Event: A/O X 3, HAS REMAINED IN BED TURNED Q2. STILL HYPERTENSIVE SBP'S 150'S TO 160'S. ALL OTHER VSS ON 2L 02. STARTED ON ZYVOX BID DUE TO BAD UA. CRACKLES STILL REMAIN IN BILATERAL BASES. FLUID RESTRICTION D/C'D. POOR APPETITE REMAINS NEED TO ENCOURAGE FOOD AND FLUID INTAKE. AT BEDSIDE ALL EVENING. Follow up:
--- NOTE | 2016-10-24 19:24 | NUR ---
PATIENT WAS UP ON SIDE OF BED WITH PT. HE HAD AN INCREASE IN APPETITE AND ATE WELL EVEN THOUGH HE DIDN'T WANT DINNER. PATIENT HAD A BOWEL MOVEMENT. A NEW UA WAS DONE WITH CLEAN CATCH AND SENT OFF.
--- NOTE | 2016-10-25 04:17 | NUR ---
Significant Event: A/0 X 3, NO FORGETFULLNESS NOTED. TURNED Q2. ALL VSS ON 2L. ONLY TOLERATED CPAP FOR ABOUT 1 HOUR TONIGHT. CRACKELES REMAIN IN BILATERAL BASES. DEFINATELY SEEMS TO BE RETAINING MORE FLUID, EXTREMETIES GETTING MORE EDEMATOUS. CONTINOUS ON ZYVOX BID. NO LIDOCAINE PATCH ON PAIENT. STATES HE HAS BEEN REFUSING THE PAST 4 TO 5 DAYS. ATIVAN GIVEN AROUND 0250 TO HELP RELAX AND SLEEP WITH GOOD RESULTS. AT BEDSIDE ALL EVENING. Follow up:
[2016-10-25 05:10] LABS: INR - (THERAPEUTIC) 2.21 (0.92-1.07); PROTIME 23.4 SECONDS (9.8-11.4)
[2016-10-25 05:19] LABS: ALBUMIN 2.3 gm/dL (3.5-5.0); ANION GAP 8.3 (10.0-19.0); CALCIUM 7.9 mg/dL (8.5-10.5); CREATININE 0.9 mg/dL (0.6-1.3); PHOSPHORUS 2.4 mg/dL (2.5-4.9); POTASSIUM 4.3 mMol/L (3.7-5.1)
[2016-10-25 05:23] LABS: BASOPHIL % 0.1 %; EOSINOPHIL # 0.1 K/uL (0.0-0.5); EOSINOPHIL % 0.5 %; HEMATOCRIT 27.5 % (37.0-53.0); HEMOGLOBIN 8.8 g/dL (11.0-16.0); IMMATURE GRANULOCYTE # 0.1 K/uL (0.0-0.3); IMMATURE GRANULOCYTE % 0.9 %; LYMPHOCYTE # 1.7 K/uL (0.8-4.0); LYMPHOCYTE % 14.3 %; MONOCYTE # 0.9 K/uL (0.0-1.0); MONOCYTE % 7.5 %; MPV 9.3 fl (9.4-12.4); NEUTROPHIL % 76.7 %; NRBC % 0 /100WBC (0-0.00); PLATELET COUNT 280 K/uL (150-450); RBC 2.67 M/uL (3.50-5.50); WBC 11.8 K/uL (4.0-11.0)
--- NOTE | 2016-10-25 12:38 | NUR ---
A-NUTRITION F/U C-DIFF SCREEN TODAY, PER ROUNDING REPORT. PER CHART REVIEW, RETAINING MORE FLUID AND INCREASE IN EDEMA TO BLE. FLUID RESTRICTION D/C CBW: 97.0 KG; ADMIT WT: 87.4 KG LABS: NA 144, K+ 4.3, GLU 117, BUN 48, DISABILITY LIAISON OFFICER 0.9, ALB 2.3 DIET RX: CONSISTENT CARB W/ENSURE ENLIVE TID. PO INTAKE HAS BEEN 50-100% SINCE LAST F/U D-AT NUTRITION RISK W/RECENT INADEQUATE ORAL INTAKE R/T ALTERED APPETITE AEB INTAKE RECORDS, PT REPORT. I-CONTINUE W/ENSURE ENLIVE TID TO PROVIDE ADDITIONAL NUTRIENTS M/E-GOAL: PO INTAKE >/=50% FOR DURATION OF ADMIT 1)F/U PO INTAKE, WT, AND POC IN 3-5 DAYS 2)ASSIST NEEDED
--- NOTE | 2016-10-25 17:06 | NUR ---
Significant Event: Pt A&Ox3, calm/cooperative, and conversational. Turn q2h for skin breakdown; tubigrip BLE during the day, and Nystatin to periarea TID/PRN. All VSS on 2L. Lung sounds are diminished and coarse in the bases. Extremities are edematous 2/3+. Pt refused lidocaine patch. at bedside all day and provided shave this afternoon. Follow up: Stool culture & c.diff screen.
--- NOTE | 2016-10-25 17:17 | NUR ---
Talked with Yaw at [facility] in [place]. She says if he agrees to participate with therapy they will consider accepting him. She says last time he often refused therapy and had other qualifiers, but this time therapy will be his primary qualifier. She says they all feel he needs to go to a NH, but undertand they won't agree to that. She says if he agrees to participate in therapy to call when he is ready and she will check with their DON regarding staffing and room availability. Will follow.
--- NOTE | 2016-10-26 04:08 | NUR ---
Significant Event: A&Ox3, HTN, SBP:140s-150s, all other VSS on 2L O2. CPAP wore at night for 2hrs. 2-3+ edema in extremities. Left arm wheeping. Repositioned Q2hrs. Patient does refuse repositiong at times. Buttocks pink, with no open areas. One large BM tonight sent down for C-Diff sample, results pending. In isolation for VRE in urine. Bilat foot drop boots applied. Patient can wiggle toes slightly, other abdi no gross movement in lower extremties. Mutliple eye drops at on bedside cart in room. ACHS with no SSI needed. HS levemir. Right PICC SL, hard to flush with positioning. Good blood return. Dressing changed. at bedside. Follow up: continue with plan of care, C-Diff results.
[2016-10-26 07:00] LABS: ALBUMIN 2.2 gm/dL (3.5-5.0); ANION GAP 9.2 (10.0-19.0); CALCIUM 7.9 mg/dL (8.5-10.5); CREATININE 0.9 mg/dL (0.6-1.3); PHOSPHORUS 2.7 mg/dL (2.5-4.9); POTASSIUM 4.2 mMol/L (3.7-5.1)
[2016-10-26 07:06] LABS: BASOPHIL % 0.1 %; EOSINOPHIL # 0.1 K/uL (0.0-0.5); EOSINOPHIL % 0.6 %; HEMATOCRIT 27.7 % (37.0-53.0); HEMOGLOBIN 8.9 g/dL (11.0-16.0); IMMATURE GRANULOCYTE # 0.1 K/uL (0.0-0.3); IMMATURE GRANULOCYTE % 1.1 %; LYMPHOCYTE # 1.7 K/uL (0.8-4.0); LYMPHOCYTE % 13.8 %; MCH 33.3 pg (27.0-34.0); MCHC 32.1 gm/dL (32.0-36.5); MCV 103.7 fl (83.0-98.0); MONOCYTE # 0.9 K/uL (0.0-1.0); MONOCYTE % 7.5 %; MPV 9.6 fl (9.4-12.4); NEUTROPHIL # (ANC) 9.4 K/uL (1.4-9.0); NEUTROPHIL % 76.9 %; NRBC % 0 /100WBC (0-0.00); PLATELET COUNT 294 K/uL (150-450); RBC 2.67 M/uL (3.50-5.50); RDW-CV 15.2 % (11.9-14.6); WBC 12.2 K/uL (4.0-11.0)
--- NOTE | 2016-10-26 11:45 | NUR ---
Spoke with patient's as patient is sleeping soundly. Talked to her about what Mary COPELAND said and the need for patient to participate with therapy as that is what will qualify him for skilled care. Explained that last time he was on IV ATBs when he went to the so had several qualifiers, so could at time choose to not participate with therapy. Told her he will not have that option this time and [facility] feels he would benefit from going to the [facility]. She says he will not go to the [facility] and tell me why. Says she will take him home before going to [facility]. Asked her if she felt he was strong enough to go home and if she would be able to care for him. She says if I had to I could take care of him at home today. She asks why I am asking. I told her that is [facility] says no and she doesn't want him to go to [facility] then he would go home. She talks about him needing surgery. Said it was my understanding he was not a candidate for surgery at this time and needed to get stronger. She says he was suppose to be having surgery this week but needed to come back to the hospital instead. Told her it is my understanding the focus for now is on him getting stronger and medically stable before a decision is made about surgery. She talks about him not coming home until after he has surgery. Explained to her the focus at is short stays and if she wants him in a facility until he has surgery we will need to look at [facility]. She then says she can manage him at home if needed. Emphasized with her again that he needs to get stronger and participate any therapy and improve his eating first. She says she will talk with him about needing to participate with therapy at . Will follow.
--- NOTE | 2016-10-26 16:31 | NUR ---
Significant Event: A/O X 3. DROWSEY TODAY, BUT AWAKENS EASILY AND RESPONDS APPROPRIATELY. USES URINAL AND BEDPAN. AFEBRILE. HR SR IN 70'S. SBP 118-125. SATS 96% ON 2LPM,NC. NO RESP. DISTRESS NOTED WHILE RESTING. CONT. WITH UPPER AND LOWER EXT. EDEMA. LRG. SEMI-LOOSE YELLOW/BROWN C-DIFF SMELLING STOOL. GIVEN IV LASIX TODAY. PLACED ROBIN. UPPER ARM CLAIR WRAPS PER ORDER. HAS ROBIN. TUBIGRIP AND FOOT DROP BOOTS ON. TAKES PO MEDS WITHOUT DIFFICULTY. IS A FULL LIFT. DOESN'T STAND. ISOLATION C-DIFF AND VRE URINE. Follow up: CONT. TO MONITER RENAL AND GENITERORY STATUS.
--- NOTE | 2016-10-27 04:20 | NUR ---
Significant Event:A/Ox3. Afebrile. VSS on 2L/NC. No respiratory distress noted. Edema throughout body same 2-3+. removed deb wrap from arms at night. Wrapped L)arm with green pad for slight weeping. Repositioned q2h if patient would allow. C/O pain to bilateral hips relieved with 1 mg IV morphine. No BM noted this 12 hour shift. Patient to be transfered to [facility] at shift change for a larger room. Follow up:Continue with plan of care.
[2016-10-27 07:42] LABS: ALBUMIN 2.2 gm/dL (3.5-5.0); ANION GAP 10.4 (10.0-19.0); CALCIUM 7.8 mg/dL (8.5-10.5); PHOSPHORUS 3.1 mg/dL (2.5-4.9); POTASSIUM 4.4 mMol/L (3.7-5.1)
[2016-10-27 07:44] LABS: INR - (THERAPEUTIC) 2.28 (0.92-1.07); PROTIME 24.1 SECONDS (9.8-11.4)
[2016-10-27 07:45] LABS: BASOPHIL % 0.1 %; EOSINOPHIL % 0.3 %; HEMATOCRIT 27.5 % (37.0-53.0); HEMOGLOBIN 8.8 g/dL (11.0-16.0); IMMATURE GRANULOCYTE # 0.1 K/uL (0.0-0.3); IMMATURE GRANULOCYTE % 0.9 %; LYMPHOCYTE # 1.4 K/uL (0.8-4.0); LYMPHOCYTE % 13.1 %; MCH 32.7 pg (27.0-34.0); MCV 102.2 fl (83.0-98.0); MONOCYTE # 0.9 K/uL (0.0-1.0); MONOCYTE % 8.1 %; MPV 9.5 fl (9.4-12.4); NEUTROPHIL # (ANC) 8.2 K/uL (1.4-9.0); NEUTROPHIL % 77.5 %; NRBC % 0 /100WBC (0-0.00); PLATELET COUNT 286 K/uL (150-450); RBC 2.69 M/uL (3.50-5.50); RDW-CV 15.3 % (11.9-14.6); WBC 10.6 K/uL (4.0-11.0)
--- NOTE | 2016-10-27 15:00 | NUR ---
Spoke with Yaw at [facility] and updated her. She says will depend on patient load if able to accept patient or not, as they have other referrals also. Will talk to and follow up with her tomorrow regarding when patient might be ready for transfer. Will follow.
--- NOTE | 2016-10-27 15:48 | NUR ---
Significant Event: pt. A/O x3. O2 stayed between 95-100 on 2L. Tired throughout day but responds to commands well. SOB with activity. CLAIR wraps applied to lower arms and legs. Sat on side of bed today, but is non-ambulatory. Takes PO meds well. PICC on R) Upper arm. Dressing dry/intact. Good blood return. Gave albumin at 2pm, first of 4 doses. In isolation for CDIFF and VRE. One stool this shift, loose w/o odor. Gets eyedrops q2h while awake. Pleasant and cooperative with cares. Follow up: continue with plan of care.
--- NOTE | 2016-10-28 04:04 | NUR ---
A&Ox3. 2+ TO 3+ GENERALIZED EDEMA. CLAIR WRAPS TO BUE. CLAIR WRAPS/TUBAGRIPS TO BLE. REMOVED 3HRS THIS SHIFT PER PATIENT REQUEST. BILATERAL FOOT DROP BOOTS. NON AMBULATORY, PATIENT USES BED SPAIN. ISO FOR CDIFF/VRE. R) PICC SL. 3/4 DOSES OF ABLUBIM GIVEN. LUNGS CLEAR/DIM ON 2L NC, KEEP STATS >94. ACCU ACHS/CARB COUNT, 1U/15GM. LAST BM 10/27/16.
[2016-10-28 05:39] LABS: ALBUMIN 3.1 gm/dL (3.5-5.0); ANION GAP 9.1 (10.0-19.0); CALCIUM 8.2 mg/dL (8.5-10.5); PHOSPHORUS 3.4 mg/dL (2.5-4.9); POTASSIUM 4.1 mMol/L (3.7-5.1)
[2016-10-28 05:41] LABS: EOSINOPHIL % 0.4 %; HEMATOCRIT 25.4 % (37.0-53.0); IMMATURE GRANULOCYTE # 0.1 K/uL (0.0-0.3); IMMATURE GRANULOCYTE % 0.9 %; LYMPHOCYTE # 1.4 K/uL (0.8-4.0); LYMPHOCYTE % 14.8 %; MCH 32.3 pg (27.0-34.0); MCHC 31.5 gm/dL (32.0-36.5); MCV 102.4 fl (83.0-98.0); MONOCYTE # 0.9 K/uL (0.0-1.0); MONOCYTE % 9.8 %; MPV 9.4 fl (9.4-12.4); NEUTROPHIL # (ANC) 6.7 K/uL (1.4-9.0); NEUTROPHIL % 74.1 %; NRBC % 0 /100WBC (0-0.00); PLATELET COUNT 232 K/uL (150-450); RBC 2.48 M/uL (3.50-5.50); RDW-CV 15.2 % (11.9-14.6); WBC 9.1 K/uL (4.0-11.0)
[2016-10-28 05:44] LABS: INR - (THERAPEUTIC) 2.06 (0.92-1.07); PROTIME 21.8 SECONDS (9.8-11.4)
--- NOTE | 2016-10-28 13:55 | NUR ---
A-NUTRITION F/U IN ISOLATION FOR C-DIFF AND VRE. 2-3+ GENERALIZED EDEMA. LABS: NA 145, K+ 4.1, GLU 104, BUN 39, POLICE LIAISON OFFICER 1.0, ALB 3.1 MEDS: ZAROXOLYN, PEPCID, LASIX, VANCOMYCIN (ADJUSTED) DIET RX: CONSISTENT CARB W/ENSURE ENLIVE TID. PO INTAKE SINCE LAST F/U REF-100%; AVG IS 41% ATTEMPTED TO SEE PT SEVERAL TIMES, BUT EITHER BUSY WITH OTHER STAFF OR SLEEPING. NOT IN ROOM. D-AT NUTRITION RISK W/INADEQUATE NUTRIENT INTAKE R/T ALTERED APPETITE AEB INTAKE RECORDS. I-1)CONTINUE W/CURRENT NUTRITION SUPPLMENTS 2)ENCOURAGE INCREASED PO INTAKE M/E-GOAL: PO INTAKE >/=50% BY NEXT F/U 1)F/U PO INTAKE, SUPPLEMENT, AND POC IN 4-5 DAYS 2)ASSIST NEEDED
--- NOTE | 2016-10-28 15:39 | NUR ---
SIGNIFICANT EVENT: Pt. is alert and oriented x3. Refused lunch and has been reminded throughout the day to drink water. Takes PO meds well. SBP 150's. HR 70's. O2 stats stayed around 90-96% on 2L until 1200 when he had an increase in SOB and sats dropped in the 80's. O2 increased to 6L and sats stabalized. Physicain notified. 1gm Bumex IVP and 20 meq KCL PO given STAT. STAT CXR showed infiltrates. O2 titrated back down to 2L at 1300. Sats while awake stay above 90%, but when sleeping sometimes drop due to mouth breathing. Pt does have his own CPAP from home but states it does not help. Still on oral VANCO for CDIFF. One BM this shift, soft w/o odor. VRE in urine, antibiotic d/c yesterday. Isolation continued. FOLLOW UP: continue to monitor O2 sats. Continue with plan of care.
--- NOTE | 2016-10-28 15:45 | NUR ---
Talked to [facility] and she says Dr. Mohr talked with patient and about talking to the surgeon and maybe referring patient. Kimberly says family has talked about [facility], [facility] or [facility] and has questions regarding transportation coverage. Talked with patient's as patient is sleeping. hopes surgeon decides to do his surgery but if no one locally will do surgery they are thinking about going somewhere else. She says [facility] is not their first choice as they had several friends go there and . She says they would like [facility] as they have been there before, but someone will have to drive them. She says their daughter is more familiar with [facility], so that is an option too. Talked to her about coverage for transportation and that Medicare won't cover the cost. She says they may be able to transport him in the car when ready to go. She says they are waiting to hear back from Dr. Mohr before making any decisions. Will follow.
--- NOTE | 2016-10-29 02:58 | NUR ---
Significant Event: PATIENT A.OX3. FOLLOWS COMMANDS. NO SIGNIFICANT NEURO CHANGES DURING SHIFT. HR'S 70. SBP 150'S-160'S. O2 ON 2L NC WHILE AWAKE, 4L NC WHILE SLEEPING. PT BREATHS THROUGH MOUTH DURING SLEEPING, NC NEEDS SWTICH TO MOUTH AT THIS TIME OR O2 WILL DROP. O2 DROPS WITH TURNS. CPAP 1HR LAST NIGHT, THEN PATIENT REFUSED. VSS. VOIDED X3 LAST NIGHT, 825ML OUT. 1 LOOSE BM INCON. REPO Q2HRS. PATIENT REFUSED CLAIR WRAPS TO BLE & BUE. LEVEMIR HELD AT 2100 BS 97. PATIENT NOT EATING OR DRINKING. SIPS WITH PILLS BUT REFUSED ANYTHING ELSE. ATIVAN GIVEN AT 0300 PER PATIENT REQUEST. Follow up: GEN SURGEON CONSULT? MONITOR O2, ENCOURAGE FLUID/FOOD INTAKE.
[2016-10-29 06:13] LABS: INR - (THERAPEUTIC) 1.83 (0.92-1.07); PROTIME 19.3 SECONDS (9.8-11.4)
[2016-10-29 06:18] LABS: ALBUMIN 3.1 gm/dL (3.5-5.0); ANION GAP 8.4 (10.0-19.0); CALCIUM 8.5 mg/dL (8.5-10.5); CREATININE 0.9 mg/dL (0.6-1.3); PHOSPHORUS 3.4 mg/dL (2.5-4.9); POTASSIUM 4.4 mMol/L (3.7-5.1)
[2016-10-29 06:24] LABS: BASOPHIL % 0.1 %; EOSINOPHIL % 0.3 %; HEMATOCRIT 26.9 % (37.0-53.0); HEMOGLOBIN 8.8 g/dL (11.0-16.0); IMMATURE GRANULOCYTE # 0.1 K/uL (0.0-0.3); IMMATURE GRANULOCYTE % 0.8 %; LYMPHOCYTE # 1.6 K/uL (0.8-4.0); LYMPHOCYTE % 13.6 %; MCH 33.3 pg (27.0-34.0); MCHC 32.7 gm/dL (32.0-36.5); MCV 101.9 fl (83.0-98.0); MONOCYTE # 1.2 K/uL (0.0-1.0); MONOCYTE % 10.1 %; MPV 9.6 fl (9.4-12.4); NEUTROPHIL # (ANC) 8.7 K/uL (1.4-9.0); NEUTROPHIL % 75.1 %; NRBC % 0 /100WBC (0-0.00); PLATELET COUNT 246 K/uL (150-450); RBC 2.64 M/uL (3.50-5.50); RDW-CV 15.5 % (11.9-14.6); WBC 11.5 K/uL (4.0-11.0)
--- NOTE | 2016-10-29 17:02 | NUR ---
Significant Event: Fluctuations in orientation. Upon most recent assessment patient was drowsy and disoriented to time/place. He reorients well. SBP- 150-160s. P-70s. Afebrile. 4L at rest and 6L with activity. Patient becomes severly dyspnic with activity. Lungs clear/diminished and slightly coarse in the bases. Non productive cough. 2-3+ edema generalized. Total lift. Turned every 2 hours and PRN. Last turn at 1640. Poor appetite. Isolation for VRE/Cdiff continued. Patient had 2 Mod BM this shift slightly loose. 225ml out per urinal and two large incontinent voids. A total of 3 doses of 40mg of IVP lasix given today and a total of 10mg zaroxyln. Albumin infusing at 25ml/hr. 1 more bottle to infuse after this bottle of albumin. Pallative plans to see patient over the weekend to provice support to patient/.
--- NOTE | 2016-10-29 23:27 | NUR ---
PT REFUSED TO WEAR HIS CPAP, WAS INSTRUCTED ON HIS REFUSAL FROM HIS SPOUSE WHO WAS AT THE SIDE OF HIS BED @4868.
[2016-10-30 03:26] LABS: ALBUMIN 3.3 gm/dL (3.5-5.0); ANION GAP 8.3 (10.0-19.0); CALCIUM 8.2 mg/dL (8.5-10.5); CREATININE 0.9 mg/dL (0.6-1.3); PHOSPHORUS 3.2 mg/dL (2.5-4.9); POTASSIUM 4.3 mMol/L (3.7-5.1)
[2016-10-30 03:28] LABS: HEMATOCRIT 24.9 % (37.0-53.0); IMMATURE GRANULOCYTE # 0.1 K/uL (0.0-0.3); IMMATURE GRANULOCYTE % 0.5 %; LYMPHOCYTE # 1.3 K/uL (0.8-4.0); LYMPHOCYTE % 14.1 %; MCH 32.9 pg (27.0-34.0); MCHC 32.1 gm/dL (32.0-36.5); MCV 102.5 fl (83.0-98.0); MONOCYTE # 1.2 K/uL (0.0-1.0); MONOCYTE % 12.9 %; MPV 9.6 fl (9.4-12.4); NEUTROPHIL # (ANC) 6.6 K/uL (1.4-9.0); NEUTROPHIL % 72.5 %; NRBC % 0 /100WBC (0-0.00); RBC 2.43 M/uL (3.50-5.50); RDW-CV 15.6 % (11.9-14.6); WBC 9.2 K/uL (4.0-11.0)
[2016-10-30 03:29] LABS: PLATELET COUNT 191 K/uL (150-450)
--- NOTE | 2016-10-30 03:31 | NUR ---
Significant Event: A/0X3. FORGETFUL. RESTED IN BED ALL OF SHIFT. TURNED Q 2 HRS SIDE TO SIDE.AFEBRILE. VSS ON 6L. LOW TO HIGH 90'S ON 6L. VERY SOB WITH TURNS. REFUSED CPAP AT HS. DENIES PAIN. PICC TO R) UPPER ARM SL. FLUSHES WITH GOOD BLOOD RETURN. REFUSED CLAIR WRAPS TO ROBIN ARMS AND LEGS. VOIDED 800+. NO BM THIS SHIFT. CONTINUE WITH CONTACT ISOLATION. Follow up: CONTINUE WITH PLAN OF CARE.
[2016-10-30 03:35] LABS: INR - (THERAPEUTIC) 2.03 (0.92-1.07); PROTIME 21.5 SECONDS (9.8-11.4)
--- NOTE | 2016-10-30 11:14 | NUR ---
Pt oriented x3 but fatigued and sleepy. at bedside. Pt has poor appetite. Doesn't want to eat much because he feels so full all of the time and it makes it difficult to breathe with or without activity. Sats 92% on 4 liters. PICC to upper R)arm. Good blood return. Isolation for VRE and Cdiff. General edema throughout body. Txing with PO Vanco. Pt arouses easily to voice.
--- NOTE | 2016-10-30 17:06 | NUR ---
Significant Event: Pt A&Ox3, calm/cooperative, and conversational. Turn q2h for skin breakdown, and Nystatin to periarea TID/PRN. All VSS on 3L. Lung sounds are clear to clear-diminished in the bases. Extremities are edematous 2/3+. Pt refused lidocaine patch. at bedside all day. Follow up: Continue plan of care.
--- NOTE | 2016-10-31 01:09 | NUR ---
PT REFUSED TO WEAR HIS CPAP TONIGHT AND IS CURRENTLY ON NC.
--- NOTE | 2016-10-31 03:38 | NUR ---
Significant Event: A/0X3. FORGETFUL. REORIENTS EASILY. GAVE ATIVAN PER PATIENT REQUEST AROUND 0013 AND PATIENT HAS BEEN SLEEPING OFF AND ON COMFORTABLY THROUGHOUT THE NIGHT. TURNED Q 2 HRS SIDE TO TO SIDE. AFEBRILE. VSS ON 2-3L. MOUTH BREATHER. PICC TO R) UPPER ARM SL. FLUSHES WITH GOOD BLOOD RETURN. DENIES PAIN. VOIDED 700+ MLS OUT. INCONTINENT OF STOOL X1. Follow up: CONTINUE WITH PLAN OF CARE. LAB RESULTS PENDING. SUPPOSE TO CALL MD IF HGB <8.
[2016-10-31 05:30] LABS: ALBUMIN 2.9 gm/dL (3.5-5.0); ANION GAP 9.2 (10.0-19.0); CALCIUM 8.3 mg/dL (8.5-10.5); CREATININE 0.9 mg/dL (0.6-1.3); POTASSIUM 4.2 mMol/L (3.7-5.1); TOTAL BILIRUBIN 0.6 mg/dL (0.0-1.5); TOTAL PROTEIN 5.5 g/dL (6.0-8.4)
[2016-10-31 05:33] LABS: BASOPHIL % 0.2 %; EOSINOPHIL % 0.2 %; HEMATOCRIT 25.1 % (37.0-53.0); HEMOGLOBIN 8.1 g/dL (11.0-16.0); IMMATURE GRANULOCYTE % 0.4 %; LYMPHOCYTE # 1.6 K/uL (0.8-4.0); LYMPHOCYTE % 16.3 %; MCH 33.3 pg (27.0-34.0); MCHC 32.3 gm/dL (32.0-36.5); MCV 103.3 fl (83.0-98.0); MONOCYTE # 1.5 K/uL (0.0-1.0); MONOCYTE % 15.5 %; MPV 9.7 fl (9.4-12.4); NEUTROPHIL # (ANC) 6.5 K/uL (1.4-9.0); NEUTROPHIL % 67.4 %; NRBC % 0 /100WBC (0-0.00); PLATELET COUNT 179 K/uL (150-450); RBC 2.43 M/uL (3.50-5.50); RDW-CV 15.6 % (11.9-14.6); WBC 9.6 K/uL (4.0-11.0)
[2016-10-31 05:39] LABS: INR - (THERAPEUTIC) 1.97 (0.92-1.07); PROTIME 20.8 SECONDS (9.8-11.4)
--- NOTE | 2016-10-31 19:08 | NUR ---
D: Assumed care of patient at 1500 from [place] on PCU. Patient transferred to patient bed via in room lift. Patient continues to have milena foot drop boots on and pneumatics. Patient continues to refuse deb wrap to milena lower extremities. Patient lung sounds cl and diminished with sl coarse to bases. Patient does have O2 per nasal cannula at 2 liters and a weak cough noted. PICC intact to right upper arm, excellent blood return noted.
--- NOTE | 2016-10-31 19:20 | NUR ---
Significant Event: SLEEPY BUT AROUSES EASILY. ORIENTED X3. FULL LIFT. TURN Q2H. DENIES PAIN. RIGHT UPPER ARM PICC SL'D, GOOD BLOOD RETURN. INCONTINENT OF STOOL X1, LOOSE. VOIDS PER URINAL. 2-3+ GENERALIZED EDEMA. O2 2-4L NC, MOUTH BREATHER, O2 IN MOUTH WHEN SLEEPING. [place] [facility] [place] 1510. REPORT GIVEN TO PRIMARY RN. Follow up:
[2016-11-01 05:58] LABS: BASOPHIL % 0.1 %; EOSINOPHIL % 0.3 %; HEMATOCRIT 24.7 % (37.0-53.0); IMMATURE GRANULOCYTE # 0.1 K/uL (0.0-0.3); IMMATURE GRANULOCYTE % 0.6 %; LYMPHOCYTE # 1.6 K/uL (0.8-4.0); LYMPHOCYTE % 16.5 %; MCH 33.6 pg (27.0-34.0); MCHC 32.4 gm/dL (32.0-36.5); MCV 103.8 fl (83.0-98.0); MONOCYTE # 1.4 K/uL (0.0-1.0); MONOCYTE % 14.2 %; MPV 9.7 fl (9.4-12.4); NEUTROPHIL # (ANC) 6.8 K/uL (1.4-9.0); NEUTROPHIL % 68.3 %; NRBC % 0 /100WBC (0-0.00); PLATELET COUNT 171 K/uL (150-450); RBC 2.38 M/uL (3.50-5.50); RDW-CV 15.8 % (11.9-14.6); WBC 9.9 K/uL (4.0-11.0)
[2016-11-01 06:10] LABS: ALBUMIN 2.7 gm/dL (3.5-5.0); CALCIUM 8.2 mg/dL (8.5-10.5); PHOSPHORUS 3.3 mg/dL (2.5-4.9)
[2016-11-01 06:11] LABS: INR - (THERAPEUTIC) 1.23 (0.92-1.07); PROTIME 12.9 SECONDS (9.8-11.4)
--- NOTE | 2016-11-01 13:41 | NUR ---
Met with Will's Loren while he slept. Re-introduced myself to her and explained my role with the care management office. She states that she has no intention of placing him in a chcf home and she will not place him in the chcf home in [place]. We discussed why the [facility] is hesitant on allowing him to come back there. She voices her understanding of this. She said that Dr. Ibrahim came in this morning and is in agreement with doing the surgery, but said patient needs to wait approximately 2 weeks before he will be medically stable or ready for surgery. His is concered whether or not he will be able to stay here for those 2 weeks or if she will be able to take him home during this period of time. He is not ready for discharge at this time. I discussed with her the fact that he may need placement after the surgery. She said that she has thought about this and would consider [facility], [facility] or [facility]. Will continue to follow at this time and offer supports.
--- NOTE | 2016-11-01 14:52 | NUR ---
Significant Event: Pt denies pain. Repositioned q 2-3 hrs. Refuses to get up in chair. Continues to have 3-4+ pitting edema bilaterial hips and legs. Penis/scrotum also 4+ pitting edema, elevated on towel. Lower abd swollen with bruising noted. Disoriented to time and place. PICC to right arm. Blind in right eye. Total lift for transfers. Follow up:
--- NOTE | 2016-11-01 14:59 | NUR ---
A-NUTRITION F/U GENERALIZED EDEMA; REFUSING TO HAVE BLE WRAPPED LABS: NA 144, K+ 4.0, GLU 125, BUN 40, CLIENT PARTNER 1.0, ALB 2.7 MEDS: LASIX INJ (STARTED 10/29), ZAROXOLYN DIET RX: REGULAR W/ENSURE ENLIVE TID. PO INTAKE REF-100%. SPOKE WITH PT AND PT'S . PT STATES HIS APPETITE IS NOT GOOD. HE IS DRINKING THE ENSURE ENLIVE, BUT DOES NOT LIKE THE STRAWBERRY. D-AT NUTRITION RISK W/INADEQUATE ORAL INTAKE R/T ALTERED APPETITE AEB INTAKE RECORDS I-1)CHANGED STRAWBERRY ENSURE ENLIVE TO [place] AND PUT STRAWBERRY ENSURE ENLIVE A DISLIKE, SO IT CANNOT BE SENT. 2)PT IS NOT MEETING NUTR. NEEDS WITH ORAL INTAKE; IF DESIRED, PT WOULD BENEFIT FROM ENTERAL NUTRITION. M/E-GOAL: PO INTAKE >/=50% BY DISCHARGE 1)F/U PO INTAKE AND POC IN 3-5 DAYS 2)ASSIST NEEDED
--- NOTE | 2016-11-02 00:34 | NUR ---
PT DOESNT WANT TO WEAR CPAP MACHINE AND IS CURRENTLY ON 3L.
--- NOTE | 2016-11-02 03:10 | NUR ---
SIGNIFICANT EVENT: Pt alert, oriented at times. Seems more confused after Ativan. Full lift, 2 PA q2H turn but does refuse at times. ACHS accuchecks, mild SS - 226 BG required 2 units. O2 increased to 5L at HS, RT adjusted to 3L and placed cannula in mouth d/t mouth breathing. Contact isolation for CDiff and VRE in urine. PICC to R) UA flushes well, good BR. Several eye drops to be given throughout day - all at bedside. at bedside.
[2016-11-02 05:26] LABS: BASOPHIL % 0.1 %; EOSINOPHIL % 0.1 %; HEMATOCRIT 23.2 % (37.0-53.0); IMMATURE GRANULOCYTE % 0.3 %; LYMPHOCYTE # 1.5 K/uL (0.8-4.0); LYMPHOCYTE % 17.1 %; MCH 33.3 pg (27.0-34.0); MCHC 32.3 gm/dL (32.0-36.5); MCV 103.1 fl (83.0-98.0); MONOCYTE # 1.3 K/uL (0.0-1.0); MONOCYTE % 14.8 %; MPV 9.7 fl (9.4-12.4); NEUTROPHIL # (ANC) 6.1 K/uL (1.4-9.0); NEUTROPHIL % 67.6 %; NRBC % 0 /100WBC (0-0.00); PLATELET COUNT 147 K/uL (150-450); RBC 2.25 M/uL (3.50-5.50); RDW-CV 15.9 % (11.9-14.6)
[2016-11-02 05:27] LABS: HEMOGLOBIN 7.5 g/dL (11.0-16.0)
[2016-11-02 05:33] LABS: INR - (THERAPEUTIC) 1.11 (0.92-1.07); PROTIME 11.7 SECONDS (9.8-11.4)
[2016-11-02 05:36] LABS: ALBUMIN 2.6 gm/dL (3.5-5.0); CALCIUM 8.1 mg/dL (8.5-10.5); CREATININE 1.1 mg/dL (0.6-1.3); PHOSPHORUS 2.9 mg/dL (2.5-4.9)
--- NOTE | 2016-11-02 11:30 | NUR ---
Spoke to Kimberly Govea APRN with Palliative Care at 1020 regarding patient. She states that Dr. Ibrahim came in today and said he will proceed with surgery tomorrow. Will continue to follow and assist with discharge plan after he recovers from the surgery.
--- NOTE | 2016-11-02 15:39 | NUR ---
D: Patient vital signs stable patient afebrile. Patient continues to require 3 liters of O2 to keep sao2 90% or greater. Patient had bed bath and was moved to chair this morning. Patient dressing to right arm skin tear changed, does have significant bruising and swelling to lower abdomen. Patient penis and scrotum significantly edematous. Patient intake 620 void x 3 for a total of 375 ml. Patient flat affect today.
--- NOTE | 2016-11-02 23:16 | NUR ---
PT REFUSED HIS CPAP TINIGHT AND IS CURRENTLY 3L NC.
--- NOTE | 2016-11-03 04:56 | NUR ---
SIGNIFICANT EVENT: Alert and oriented. VSS on 2 to 3L. Morphine given x1 - 0132. ACHS accuchecks. PICC to R)UA. Contact Isolation for CDiff/VRE. Lidoderm patch not present on assessment at time to remove (0100) - patient states that he has not had lidoderm patch for the past 2 weeks and does not want it applied, he will request it if he wants it. Refused repositioning other than moving legs. Cooperative with cares.
[2016-11-03 07:31] LABS: HEMATOCRIT 23.5 % (37.0-53.0)
[2016-11-03 07:32] LABS: HEMOGLOBIN 7.3 g/dL (11.0-16.0)
--- NOTE | 2016-11-03 10:08 | NUR ---
0930 Met with and patient this morning after reviewing the patient's chart. In the chart it indicated that surgery is on hold for now. I asked patient and about this and they both said they are not sure what is going on. Neither one of them knows if patient will go to surgery later this week or how long it is on hold for. Patient states he does not necessarily want the surgery, but states he cannot go on continuing to be sick all the time so he feels he does not have a choice. We briefly discussed skilled nuring home placement or swingbed, but not able to make that decision until we know more about whether or not he will be having surgery soon. Will continue to follow along while he is here and assist with discharge planning.
--- NOTE | 2016-11-03 16:29 | NUR ---
Significant Event: Patient is alert and oriented x3. VSS and on 2-3 liters of O2. Total lift patient. Has sat in the chair this afternoon. Turn every 2 hours. Getting an air mattress per patient request. PICC to the right upper arm, good blood return, single lumen. Measured. Accuchecks AC/HS have been WNL. Contact isolation for VRE and C.Diff. So far the patient has not had any stools today. Has bilateral foot drop boots in brace. Multiple bruising throughout his body, skin is very fragile. Dressing to the right upper FA changed, needs to be change daily. Scrotum is edeamtous, elevating as patient allows. at the bedside. Cooperative with cares.
--- NOTE | 2016-11-03 19:23 | NUR ---
PT REFUSED HIS CPAP AND IS CURRENTLY ON 3L NC.
--- NOTE | 2016-11-04 05:16 | NUR ---
Significant Event: Patient is alert and oriented x 3. VSS on 3L of O2. Full lift. Foot drop boots to bilateral lower extremities. Edema noted throughout all extremities. Dressing to right forearm is intact. No BM this shift. Voids per urinal. Morphine given x 1 at 2345. Single lumen PICC to right upper arm, saline locked. In contact isolation for c.diff and VRE. ACHS accuchecks. at the bedside. Patient is pleasant and cooperative with cares. Follow up:
[2016-11-04 06:20] LABS: BASOPHIL % 0.1 %; EOSINOPHIL % 0.3 %; HEMATOCRIT 22.4 % (37.0-53.0); IMMATURE GRANULOCYTE % 0.5 %; LYMPHOCYTE # 1.4 K/uL (0.8-4.0); LYMPHOCYTE % 19.2 %; MCH 33.6 pg (27.0-34.0); MCHC 32.1 gm/dL (32.0-36.5); MCV 104.7 fl (83.0-98.0); MONOCYTE # 0.9 K/uL (0.0-1.0); MONOCYTE % 12.3 %; MPV 10.2 fl (9.4-12.4); NEUTROPHIL # (ANC) 5.1 K/uL (1.4-9.0); NEUTROPHIL % 67.6 %; NRBC % 0 /100WBC (0-0.00); PLATELET COUNT 146 K/uL (150-450); RBC 2.14 M/uL (3.50-5.50); RDW-CV 15.9 % (11.9-14.6); WBC 7.5 K/uL (4.0-11.0)
[2016-11-04 06:25] LABS: ALBUMIN 2.6 gm/dL (3.5-5.0); ANION GAP 8.3 (10.0-19.0); CALCIUM 8.2 mg/dL (8.5-10.5); CREATININE 1.2 mg/dL (0.6-1.3); POTASSIUM 4.3 mMol/L (3.7-5.1)
[2016-11-04 06:28] LABS: HEMOGLOBIN 7.2 g/dL (11.0-16.0)
[2016-11-04 06:34] LABS: BILIRUBIN URINE NEGATIVE (NEGATIVE); BLOOD URINE 250 /UL (NEGATIVE); COLOR URINE STRAW (YELLOW); GLUCOSE URINE NEGATIVE (NEGATIVE); KETONE URINE NEGATIVE (NEGATIVE); LEUKOCYTES URINE 500 /UL (NEGATIVE); NITRITE URINE NEGATIVE (NEGATIVE); PROTEIN URINE 500 mg/dL (NEGATIVE); TURBIDITY URINE 2+ (CLEAR); UROBILINOGEN URINE NORMAL (NORMAL)
[2016-11-04 06:44] LABS: EPITHELIAL URINE 0-2 #/HPF (NEGATIVE); RBC URINE 50-100 #/HPF (NEGATIVE); WBC URINE 50-100 #/HPF (NEGATIVE)
[2016-11-04 06:45] LABS: BACTERIA URINE FEW (NEGATIVE); WBC CLUMPS URINE MODERATE (NEGATIVE)
--- NOTE | 2016-11-04 12:44 | NUR ---
A - NUTRITION F/U. A/O X 3, FORGETFUL. GLU 146, BUN/TROUBLE LINEMAN 40/1.2, ALB 2.6. IN ISO FOR C DIFF AND VRE. WT IS STABLE. PT W/ 2+ BUE AND 2-3+ BLE EDEMA, ON LASIX. DIET: REGULAR W/ ENSURE TID W/ MEALS (NO STRAWBERRY). INTAKE CONSISTENTLY 25-50%. TAKES ENSURE. D - AT RISK W/ INADEQUATE ORAL INTAKE R/T DECREASED APPETITE AEB INTAKE RECORD. I - GOAL: 50% OR BETTER INTAKE BY DISMISSAL. M/E - CONT TO ENCOURAGE MEAL AND SUPPLEMENT INTAKE. WILL CONT TO MONITOR INTAKE AND WT.
--- NOTE | 2016-11-04 14:18 | NUR ---
Reviewed patient's chart and note from Dr. Ibrahim states possible surgery next week. Will continue to monitor and talk with hospitalist on board to see if the plan is for patient to remain here until the surgery.
--- NOTE | 2016-11-04 15:29 | NUR ---
Significant Event: Patient is alert and oriented x3. Very tired this morning. VSS and on 3 liters of O2 at this time, not able to titrate. He desats very quickly. Live wraps applied to bilateral lower legs and the left arm, refused on the right arm. Limb alert to the right arm as he has PICC line. Good blood return, single lumen. Dressing changed to the right elbow- has a skin tear protocol. Looks better than yesterday. Small pea sized shear noted on the left buttock cheek today. Turn patient every 2 hours as the patient allows. Does have an air mattress bed. Did go outside with therapy today. Significant large blister/bruise/bump noted on the left second finger- WOC covered this morning. Patient told me that Dr. Pelaez said we should drain it- no orders received for this. I did call WOC back and talked to Amador and she said she would follow up with him tomorrow, but would need official order from Dr. Pelaez to drain. I did cover the left hand with kerlix to protect it. Daily weight and accurate I/O. Contact isolation for VRE and C.Diff. Did not have a stool yesterday and has not had one today. On oral vanco. Accucheck AC/HS, have been WNL. Full lift. PT/OT. Bilateral foot drop boots. Significant edema throughout. CHG bag bath given. shaved patient. Denies pain.
[2016-11-05 05:59] LABS: ALBUMIN 2.6 gm/dL (3.5-5.0); ANION GAP 7.3 (10.0-19.0); BASOPHIL % 0.1 %; CALCIUM 8.1 mg/dL (8.5-10.5); CREATININE 1.2 mg/dL (0.6-1.3); EOSINOPHIL % 0.3 %; HEMATOCRIT 21.8 % (37.0-53.0); HEMOGLOBIN 6.7 g/dL (11.0-16.0); IMMATURE GRANULOCYTE % 0.5 %; LYMPHOCYTE # 1.7 K/uL (0.8-4.0); LYMPHOCYTE % 23.2 %; MCH 32.2 pg (27.0-34.0); MCHC 30.7 gm/dL (32.0-36.5); MCV 104.8 fl (83.0-98.0); MPV 10.2 fl (9.4-12.4); NEUTROPHIL # (ANC) 4.7 K/uL (1.4-9.0); NEUTROPHIL % 62.9 %; NRBC % 0 /100WBC (0-0.00); PHOSPHORUS 2.5 mg/dL (2.5-4.9); PLATELET COUNT 166 K/uL (150-450); POTASSIUM 4.3 mMol/L (3.7-5.1); RBC 2.08 M/uL (3.50-5.50); RDW-CV 16.1 % (11.9-14.6); WBC 7.5 K/uL (4.0-11.0)
--- NOTE | 2016-11-05 06:13 | NUR ---
Significant Event: Assumed cares at 2200. Patient alert and oriented, forgetful at times. Morphine given x3 with minimal relief noted. Oxygen to 3L via nasal cannula. Repositioned as patient would allow. at bedside. Blister to left hand opened. Pleasant and cooperative iwth cares. Follow up: continue to monitor
--- NOTE | 2016-11-05 11:30 | NUR ---
D: Patient called nurse into room to remove deb wraps from upper extremities. Attempted to remind patient and encourage him to leave wraps on arms to assist with edema. R: Patient continues to refuse deb wraps to upper extremities but did allow nurse to keep imlena deb wraps to milena lower legs.
--- NOTE | 2016-11-05 13:06 | NUR ---
D: When rounding on patient nurse was asked to remove milena lower deb wraps and foot drop boots. States it makes him have such a hard time breathing when these wraps are on his extremities. i: Nurse removed deb wraps and milena foot drop boots. Was able to have permission to leave VTE on milena legs but did apply lotion to milena legs and feet.
--- NOTE | 2016-11-05 16:31 | NUR ---
D: Patient vital signs stable patient low grade temp 99.3. Patient hgb this am was 6.7 and currently has a unit of PRBC that are to infuse over 4 hours. Patient did received additional lasix this am and will give his lasix this afternoon after his unit of blood. Patient has deb wraps on his arms and legs this am but has refused them this afternoon. Dressing to left hand dry and intact and patient has multple bruises over entire body. Patient does remain on 3 liters o2 to keep sao2 90% or greater.
[2016-11-06 04:51] LABS: BASOPHIL % 0.2 %; EOSINOPHIL # 0.1 K/uL (0.0-0.5); EOSINOPHIL % 0.6 %; HEMATOCRIT 23.4 % (37.0-53.0); HEMOGLOBIN 7.5 g/dL (11.0-16.0); IMMATURE GRANULOCYTE # 0.1 K/uL (0.0-0.3); IMMATURE GRANULOCYTE % 0.7 %; LYMPHOCYTE % 23.4 %; MCH 32.8 pg (27.0-34.0); MCHC 32.1 gm/dL (32.0-36.5); MCV 102.2 fl (83.0-98.0); MONOCYTE % 12.2 %; MPV 10.1 fl (9.4-12.4); NEUTROPHIL # (ANC) 5.4 K/uL (1.4-9.0); NEUTROPHIL % 62.9 %; NRBC % 0 /100WBC (0-0.00); PLATELET COUNT 157 K/uL (150-450); RBC 2.29 M/uL (3.50-5.50); RDW-CV 18.3 % (11.9-14.6); WBC 8.5 K/uL (4.0-11.0)
[2016-11-06 05:22] LABS: ALBUMIN 2.5 gm/dL (3.5-5.0); ANION GAP 8.2 (10.0-19.0); CREATININE 1.2 mg/dL (0.6-1.3); PHOSPHORUS 2.8 mg/dL (2.5-4.9); POTASSIUM 4.2 mMol/L (3.7-5.1)
--- NOTE | 2016-11-06 07:28 | NUR ---
Patient is alert and oriented but can be confused. In isolation for C.Diff and VRE. Had a smear BM. Refuses to reposition. On 4L O2, was increased from 3L. PICC in R) arm is saline locked. Received 1 unit of PRBC. Has been voiding in a urinal. at bedside, helps with cares. Has a colon-bladder fistula. R) eye has a cornea transplant. Takes a lot of eye drops. ACHS accuchecks. Did give morphine x2 with last at 0430.
--- NOTE | 2016-11-06 17:18 | NUR ---
Significant Event: Patient is alert and oriented x3. VSS and on 4-5 liters of O2. Patient did wear the simple mask with 6 liters for two times today for a few minutes. Dr. Lizarraga is aware of this as well as Dr. Pelaez. PICC in the right arm, single lumen, good blood return. Lasix increased to 80MG BID. Bladder scanned patient this morning and it was 123ml. Dr. Lizarraga notified of this as well as Dr. Pelaez. Dr. Lizarraga notified up with update at 1400 and would like another update around 1800 with urine output. Accuchecks AC/HS. HCG bath given. Total lift, turn side to side every 2 hours. Has been compliant with that today. Live wraps were placed this afternoon, he would not let me place them this morning. Denies pain. Isolation for C.Diff and VRE. L)hand blister that opened yesterday was re-wrapped today. Cooperative with cares.
--- NOTE | 2016-11-07 03:52 | NUR ---
Significant Event:Patient started on bumex drip and has voided several times for a total of 1875 out in urine. Got alittle upset with being repositioned stated," I just get comfortable and then you have to move me". Live wraps removed and legs lotioned and live wraps replaced with foot drop boots. Around 0200 patient stated he wanted them all removed for awhile. Alert and oriented, forgetful at times. O2 drops when head of bed lowered for repositioning but has been able to recoup rather quickly. Encourage to cough and deep breath. Lungs are diminished. Cooperative most of the time with cares. Has denied the need for pain medication. Follow up: Continue to monitor.
[2016-11-07 05:27] LABS: BASOPHIL % 0.2 %; EOSINOPHIL # 0.1 K/uL (0.0-0.5); EOSINOPHIL % 0.6 %; HEMATOCRIT 21.4 % (37.0-53.0); IMMATURE GRANULOCYTE % 0.5 %; LYMPHOCYTE # 1.8 K/uL (0.8-4.0); LYMPHOCYTE % 20.8 %; MCH 32.7 pg (27.0-34.0); MCHC 31.8 gm/dL (32.0-36.5); MCV 102.9 fl (83.0-98.0); MONOCYTE % 11.1 %; MPV 10.3 fl (9.4-12.4); NEUTROPHIL # (ANC) 5.9 K/uL (1.4-9.0); NEUTROPHIL % 66.8 %; NRBC % 0 /100WBC (0-0.00); PLATELET COUNT 165 K/uL (150-450); RBC 2.08 M/uL (3.50-5.50); RDW-CV 17.6 % (11.9-14.6); WBC 8.8 K/uL (4.0-11.0)
[2016-11-07 05:28] LABS: HEMOGLOBIN 6.8 g/dL (11.0-16.0)
[2016-11-07 05:30] LABS: ANION GAP 8.9 (10.0-19.0); CALCIUM 8.4 mg/dL (8.5-10.5); CREATININE 1.2 mg/dL (0.6-1.3); MAGNESIUM 2.2 mg/dL (1.8-2.6); PHOSPHORUS 2.8 mg/dL (2.5-4.9); POTASSIUM 3.9 mMol/L (3.7-5.1)
--- NOTE | 2016-11-07 19:32 | NUR ---
Significant Event: Patient is alert and oriented x3. VSS and on 4-5 liters of O2. Up with total lift. Turn every 2 hours. Did sit in the chair for 6 hours. Cough is very harsh, but unable to cough it out. Lung sounds are very crackly in the bases. Chest X-Ray done today. PICC line in the right upper arm. IV started in the L)FA for bumex drip due to blood being infused into the PICC at this time. Blood transfusion started at 1810 for a HGB of 6.8. Accuchecks AC/HS. CLAIR wraps were on all day until about 1700- patient made me take them off. Isolation for C.Diff and VRE. Morphine given x2, relief noted. Stated he feels achy and crampy. at the bedside. Cooperative with cares. HCG bath completed. Follow Up: Blood transfusion, monitor lung sounds and O2, pain
[2016-11-08 06:23] LABS: ALBUMIN 3.5 gm/dL (3.5-5.0); ANION GAP 9.9 (10.0-19.0); CALCIUM 8.7 mg/dL (8.5-10.5); CREATININE 1.3 mg/dL (0.6-1.3); PHOSPHORUS 3.2 mg/dL (2.5-4.9); POTASSIUM 3.9 mMol/L (3.7-5.1)
[2016-11-08 06:29] LABS: BASOPHIL % 0.1 %; EOSINOPHIL % 0.4 %; HEMATOCRIT 24.9 % (37.0-53.0); IMMATURE GRANULOCYTE % 0.5 %; LYMPHOCYTE % 23.3 %; MONOCYTE % 11.6 %; MPV 10.4 fl (9.4-12.4); NEUTROPHIL # (ANC) 5.5 K/uL (1.4-9.0); NEUTROPHIL % 64.1 %; NRBC % 0 /100WBC (0-0.00); RBC 2.49 M/uL (3.50-5.50); RDW-CV 19.4 % (11.9-14.6); WBC 8.5 K/uL (4.0-11.0)
[2016-11-08 06:36] LABS: HEMOGLOBIN 7.9 g/dL (11.0-16.0); MCH 31.7 pg (27.0-34.0); MCHC 31.7 gm/dL (32.0-36.5); PLATELET COUNT 199 K/uL (150-450)
[2016-11-08 06:39] LABS: PCO2 59 mmHg (35-45); PO2 53 mmHg (80-90)
--- NOTE | 2016-11-08 07:46 | NUR ---
Significant Event:Patient continues to struggle with keeping his 02 saturations above 90% Lungs are coarse throughout. Refuses drop boots or wraps states he wants to get the fluid down into his legs. Accucheck at HS was 219. Morphine 2mg given x three last at 0142. At 0613 patient sats were found to be at 77% Attempted to get sats to come back up but unable even with a mask on 10 liters. Rapid response called and chest x-ray, and ABG's were drawn. RT gave a treatment and patient was started on high flow 02 at 57%. 02 are now in the mid 90's. Follow up:Continue to monitor
--- NOTE | 2016-11-08 13:54 | NUR ---
A-NUTRITION F/U RAPID RESPONSE CALLED EARLY IN THE AM; PUT ON HIGH FLOW O2 CBW: 79.5 KG; 11/07 WT: 87.7 KG. IV BUMEX STARTED ON 11/06; 2.5 L OUT 11/07 AND 2.9 L OUT SO FOR TODAY. LAB: NA 143, K+ 3.9, GLU 59, BUN 50, SENIOR CONSULTANT 1.3, ALB 3.5 MEDS: IV BUMEX, ALDACTONE, ZAROXOLYN DIET RX: REGULAR W/ENSURE ENLIVE TID. PO INTAKE DECREASED TO 0-50% FOR THE MOST PART D-AT NUTRITION RISK W/INADEQUATE ORAL INTAKE R/T ALTERED APPETITE AEB INTAKE RECORDS, PT REPORT. I-CONTINUE WITH CURRENT NUTRITION INTERVENTIONS. ENTERAL FEEDINGS HAVE BEEN RECOMMENDED, IF DESIRED, PLEASE CONSULT. M/E-GOAL: PO INTAKE TOLERATED AND OR ACCEPTED 1)F/U PO INTAKE, WT, AND POC IN 4-6 DAYS 2)ASSIST NEEDED
--- NOTE | 2016-11-08 14:06 | NUR ---
Met with Kimberly Govea APRN Palliative Care today. She states Dr. Radha Mohr came to see patient and for a social visit today. She recommends patient return to [facility] or [facility] facility for comfort cares. Dr. Mohr states she will come back this evening and again tomorrow morning to talk with patient about his decision. I placed a call to [facility] at [phone], but had to leave a message for the [facility] coordinator to call me. Will wait to hear back from her on whether or not they will consider accepting patient on comfort cares. Will continue to follow.
--- NOTE | 2016-11-08 16:09 | NUR ---
Significant Event: Patient is alert and oriented x3. VSS and on 73 FiO2 that is variable. He started out in the 50's. Cough is very loose, but not able to get it out. Very harsh. Need a sputum sample, hasnt been able to provide one thus far. Made a DNR today. Bracelet placed on the left arm. PICC in the right upper arm, dressing will need changed tomorrow. Started on IV rocephin. Other IV is in the L)FA for bumex drip that was increased to 2mg/hr today. Started on spiralactone. Accucheck AC/HS. Morphine given x2 for abodominal pain. Relief noted. at the bedside. Total lift. Very tired today. Left finger wrapped with xeoroform and gauze, changed daily. Drop boots, deb wraps and pneumatics in place. Turn every 2 hours or as the patient allows. Sore on his bottom is bigger than before, applying aloe vesta with each turn. Follow up X-ray in the morning.
[2016-11-09 05:02] LABS: ALBUMIN 3.2 gm/dL (3.5-5.0); CALCIUM 8.7 mg/dL (8.5-10.5); CREATININE 1.4 mg/dL (0.6-1.3); PHOSPHORUS 3.4 mg/dL (2.5-4.9); POTASSIUM 3.9 mMol/L (3.7-5.1)
[2016-11-09 05:03] LABS: ANION GAP 8.9 (10.0-19.0)
[2016-11-09 05:05] LABS: HEMATOCRIT 24.4 % (37.0-53.0); MCH 32.4 pg (27.0-34.0); MCV 101.2 fl (83.0-98.0); MPV 10.2 fl (9.4-12.4); PLATELET COUNT 192 K/uL (150-450); RBC 2.41 M/uL (3.50-5.50); RDW-CV 18.8 % (11.9-14.6); WBC 8.3 K/uL (4.0-11.0)
[2016-11-09 05:07] LABS: HEMOGLOBIN 7.8 g/dL (11.0-16.0)
[2016-11-09 05:56] LABS: ABSOLUTE NEUTROPHIL CT (ANC) 5.8 K/uL (1.4-9.0); BANDED NEUTROPHIL # 0.8 K/uL (0.0-0.1); BANDED NEUTROPHILS % 10 %; LYMPHOCYTE # 1.7 K/uL (0.8-4.0); LYMPHOCYTE % 21 %; MONOCYTE # 0.7 K/uL (0.0-1.0); SEGMENTED NEUTROPHIL % 60 %
--- NOTE | 2016-11-09 07:23 | NUR ---
Significant Event: Patient is alert and oriented x 3. VSS on high flow O2 with FiO2 at 55%. Max temp of 99.1. Full lift. Reposition q2 hours when patient allows. Encouraged to reposition. Numbness/tingling to bilateral hands and feet. Moist, nonproductive cough noted. Need sputum culture. In contact isolation for c.diff and VRE in the urine. Smear x 1 this shift. Voids per urinal. Left forearm IV with Bumex gtt running at 2mg/hr. Right upper arm single lumen PICC, saline locked. Morphine given for pain last at 0448. at the bedside. Patient is pleasant and cooperative with cares. Follow up:
--- NOTE | 2016-11-09 11:13 | NUR ---
1000 phone call from Jose at [facility] stating they would like to accept patient, but because they do not have a hospice agency or services he needs to meet acute care criteria to qualify for swingbed. If he stays on the Bumex and IV Rocephin this would qualify him, but only for the time he is on these meds. Also, she wants to make certain that the family is fully aware that they cannot do Hiflow at their facility so if patient gets back into a crisis situation where he would need the Hiflow they would not be able to provide that and he may not survive there without it. I shared with TEDDY Osborne that patient needs to have a qualifier to go to [facility] in [place]. She will talk with Dr. Mccann to see what else patient may need. Per Jose at [place], alot of times the patient's in these situations come to them on morphine RADIOLOGY AIDE for pain. I shared all of this with Kimberly Govea APRN with Palliative care and she said the family will be here at 1200 to have a meeting with Dr. Mohr. I will attempt to be there to discuss the concerns [place] has.
--- NOTE | 2016-11-09 16:23 | NUR ---
Met with the Loren and her two daughters at [address] discuss [address] Dr[address] Mohr was to be present for the meeting, but she was delayed at [facility]. I had Tanya Sawant APRN Palliative Care come in place of Kimberly Govea since Kimberly was out of the hospital this afternoon. Many options for safe discharge plan were discussed including: [facility], group home placement in [place] or [place], returning home with additional caregivers, moving to [facility] to be with daughter, and trying to find hospice agency that covers [place] so patient could go home on Hospice. Family prefers that I still work on getting patient to [facility] and understand that the issue is having a qualifier for him to go there and be able to stay there for any length of time. They think that even if he can go there for a week this will give them time to decide on a snf plan for him. I met with Dr. Mccann and Jenise Benjamin at 1345 and we discussed all of the above options. Patient will be on the IV Rocephin for 10 days (9 days left) so we can qualify him for swingbed based on the IV antibiotic. Our concern is having a safe plan for him once he is done with the IV antibiotic. There are no Hospice Agencies that cover the [place]. I called Johanny Araiza [place], Usha Anand [place], Caryn, Lianet MATAMOROS, and Patrice MATAMOROS. I was also told by all of them that they are not aware of any hospice agency that covers this area, which is the same thing [facility] told me. Dr. Mccann and I met with patient, Loren and two daughters this afternoon for [address] Mccann was honest with them all and voiced our concerns about a safe plan for him once he is done with the Recephin and is no longer able to stay at the swingbed. Patient made it very clear that he has no intention of now or ever going into a group home facility/half-way. He strongly believes that he will be strong enough to return home once he completes the antibiotic. Dr. Mccann did discuss with them all that the underlying medical condition is still present and even if the pneumonia is treated the fistula is still an issue. He said that he thinks he will be able to have the surgery once the pneumonia is cleared up. Dr. Mccann voiced her concern with him thinking this because one of the main reasons Dr. Ibrahim did not proceed with the surgery is because patient was/is to weak to handle the procedure and has poor nutritional intake. Surgery may not be an option for him. Stressed to Will and the family that we want him to keep fighting and to get better, but we are concerned about his health and well being as well as the health and well being of Loren. We have grave concerns about her being able to care for him at home and his daughters agree that this is a concern. I called the [facility] out of [place] as they serve the [facility] and they can help the family find caregivers to assist Loren in the home or they can at least help the family by running background checks on potential caregivers. I called EMS to get a quote for ambulance transport to [facility] which is where one of the daughter's lives. The quote for ALS is $9,186 to go the 466 miles to [place]. I also called Emy Santoyo, community development planner at [facility] and discussed with her the option of sending patient there of the remainder of IV antibiotics and then let her assist with discharge plans. Emy states her main concern is the safety and well being of Loren and I told her we agree that this is a concern. Emy also said that they need to get the okay from the hospital mainframe systems administrator and Dr. Ulloa before accepting patient back and she will not have this until . I will provide the family with the information from the [facility] and the quote for ambulance transport to [place]. The only option for him here in [place] would be to go to a group home facility or look into an [facility]. Will suggest this to the family too. Will continue to follow.
--- NOTE | 2016-11-09 18:30 | NUR ---
Significant Event:PT A/O AND COOPERATIVE. ON 6L PER NC AND O2 SATS 94%. ON BUMIX CONTINUOUS DRIP. TURN Q 2 HOURS. ISOLATION FOR VRE URINE AND C-DIFF. LEFT ARM SKIN TEAR, BOTTOM IDS REDDENED AND SCROTUM SORE, DRESSING ON LEFT HAND FINGER FROM BLISTER. LFA IV AND SINGLE LUMEN PICC IN R ARM. AC AND HS BS. FOOT DROP BOOTS ON. VOIDS PER URINAL AND HAD MOD STOOL TODAY. 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 PICC LINE DRESSING CHANGED TODAY. MORPHINE FOR PAIN. PLAN TO TRANSFER CLOSER TO [place] IF THEY CAN FIND A PLACE. Follow up:
--- NOTE | 2016-11-10 04:04 | NUR ---
Patient is alert and oriented, but was confused upon awaking tonight. In isolation for VRE and C.diff. O2 on at 4.5L, sating in the low 90's. PICC to R) upper arm is saline locked. IV to L) forearm has bumex and NS at TKO infusing. Has only had 400ml out. Foot drop boots bilaterally, supposed to have CLAIR wraps to legs and arms bilaterally but refuses to wear them for very long. Refuses to be repositioned. ACHS accucheck with 2 units given for 239 blood sugar. Looking for placement.
[2016-11-10 06:37] LABS: BASOPHIL % 0.3 %; EOSINOPHIL % 0.6 %; HEMATOCRIT 23.7 % (37.0-53.0); IMMATURE GRANULOCYTE % 0.4 %; LYMPHOCYTE # 1.8 K/uL (0.8-4.0); LYMPHOCYTE % 25.2 %; MCH 32.6 pg (27.0-34.0); MCHC 32.1 gm/dL (32.0-36.5); MCV 101.7 fl (83.0-98.0); MONOCYTE # 0.9 K/uL (0.0-1.0); MONOCYTE % 12.4 %; NEUTROPHIL # (ANC) 4.4 K/uL (1.4-9.0); NEUTROPHIL % 61.1 %; NRBC % 0 /100WBC (0-0.00); PLATELET COUNT 211 K/uL (150-450); RBC 2.33 M/uL (3.50-5.50); RDW-CV 18.3 % (11.9-14.6); WBC 7.2 K/uL (4.0-11.0)
[2016-11-10 06:51] LABS: HEMOGLOBIN 7.6 g/dL (11.0-16.0)
[2016-11-10 06:53] LABS: CALCIUM 8.5 mg/dL (8.5-10.5); CREATININE 1.6 mg/dL (0.6-1.3); PHOSPHORUS 3.6 mg/dL (2.5-4.9); POTASSIUM 4.1 mMol/L (3.7-5.1)
[2016-11-10 06:55] LABS: ANION GAP 8.1 (10.0-19.0)
--- NOTE | 2016-11-10 16:25 | NUR ---
1050 Social visit with Loren while Will slept. I gave her the phone number for [facility] [place] and encouraged her to call them as soon as possible to make arrangements for in home caregivers. I also shared with her that to send Will to [place] via ambulance it will cost $9186.00 and she does not think they can afford that cost. We talked at length about the safety concerns for Will and herself if he were to come back home at that this is not an option for them unless she has 24 hour caregivers to assist her with his needs. She is considering the option of going to [place], [place] and staying with their daughter Demetrice and being admitted to Hospice in [place]. Kimberly Govea APRN came in and joined in the conversation for a short period of time. Daughters Demetrice and Lucy are not here at this time, but they will be here this afternoon. 1400 spoke to Kimberly Govea again and family needs a list of caregivers so they can start making calls to set up for 24 hour care. I called [facility] in [place] and spoke to Joaquina. They are not able to give a list of caregivers until patient is admitted for their services. The admission process can take up to 14 days due to staff having to travel to [place]. Joaquina thought the career development associate covering the [facility] had openings for admission next Tuesday. I will have family call [facility]. I then called and spoke to Mary Jo at [facility] and she faxed a list of caregivers to me. I then called and spoke to Emy Santoyo, environmental restoration planner for the [facility]. Emy said the nursing home administrator Daja is available to talk to so I spoke with her. I spent about 25 minutes on the phone with Daja trying to work out a plan that patient can return to [facility]. Per Daja if he is on the morphine pump that with the IV antibiotics are qualifiers. She was going to talk with her staff and call me back before [address] Mccann and I met with the family. Dr. Mccann is changing patient to the pump for pain control. Family is in agreement with transfer to [facility] tomorrow if possible. They also voice their complete and total understanding that patient cannot and will not be able to transfer to home with only Loren as his caregiver. The family states they are willing to find caregivers if it comes to patient being discharged from [facility] or they will consider transferring patient to [facility] on Hospice.1615 phone call from Daja nursing home administrator at [facility] and they will accept patient tomorrow. She requests that we discharge patient as early as we can as they would like him there by [address] Mccann and Jenise Benjamin of the plan as well as charge nurse Katy. Notified EMS of transfer tomorrow. Plan to have patient discharged no later than 0930. Family is in agreement with this plan.
--- NOTE | 2016-11-10 20:00 | NUR ---
AAOx3. Cooperative with cares. Often refused repositioning as his muscles/skin/body was sore/painful today. Gave Gypsy 1tab and Morphine IV. Cleaned, boosted, repositioned him. Slept hard for part of afternoon. Left inner forearm w/Bumex drip @2ml/hr. SONNY PICC w/GBR and Morphine SEO EXECUTIVE demand only of 0.5mg w/20min LO. Transfer to [facility] tomorrow w/PICC in place. On 3-4 liters O2. Dressings to forearm and fingers changed vaseline gauze and wrap.
--- NOTE | 2016-11-11 05:32 | NUR ---
Patient is alert and oriented, VSS on 5L O2, tends to be a mouth breather when sleeping so O2 sats drop into the 80's. Morphine POT PUSHER set at 0.5mg demand only with 20 minute lockout. Has had 4 demands and attempts. Refuses to reposition off of his bottom but will move legs and head of bed. PICC to R) upper arm. IV to L) forearm has bumex infusing. Had 850ml out. Gave albumin. Will go to [facility] bed.
[2016-11-11 06:53] LABS: ALBUMIN 3.3 gm/dL (3.5-5.0); CALCIUM 8.1 mg/dL (8.5-10.5); CREATININE 1.7 mg/dL (0.6-1.3); PHOSPHORUS 3.9 mg/dL (2.5-4.9); POTASSIUM 3.9 mMol/L (3.7-5.1)
[2016-11-11 06:54] LABS: ANION GAP 9.9 (10.0-19.0)
--- NOTE | 2016-11-11 08:56 | NUR ---
Is A/O.Has O2 on at 4L/NC.Has upper Rt arm PICC line & IV Rt.upper arm.Voiding ok.Had a stool today.Skin very fragile.Has skin tear Lt.arm,is wrapped.Has morphine RENTAL CLERK TOOL AND EQUIPMENT.
--- NOTE | 2016-11-11 13:52 | NUR ---
I called EMS at 0739 today to confirm they had Will set up for transport to [facility]. EMS said they have a crew ready and will be up to the floor at 0900. I arrived on the floor at 0800 to make certain doctors were working on the discharge orders. TEDDY Osborne and Dr. Mccann were working on the discharge papers. Provided patient's nurse Crystal with the nurse to nurse number at [phone]. Arrived back on the floor at 0855 and the ambulance crew was here. Crew was upset that they did not know that is on a INSTRUMENT ROOM TECHNICIAN pump per nurse Crystal. I talked with the crew and let them know that I did share all of the special needs and equipment with Erna when I called yesterday as well as on the form that was scanned to [facility] at 1710 last night. I said good bye to Will and wished him well. I also said goodbye to his , Loren and daughters. I faxed discharge orders to Jose at [facility] at [phone]. I called Jose at 0940 to let her know that the patient left the building at approximately 0920 and I confirmed with her that she received the discharge orders via fax. As of 949 Crystal had not done the nurse to nurse call yet, but she was sitting down to make the call. Patient discharged without incident.
== END 2016-11-11 09:00 | disposition swing bed (61) | DRG 189 ==
LOC: GPCU 18:58 → GMSU 10-31 15:45
PROVIDERS: Family Medicine; Internal Medicine; Internal Medicine Nephrology; Nurse Practitioner; Nurse Practitioner Family; Physician Assistant; ADMIT Internal Medicine
PROC: 30243N1 Transfusion of Nonautologous Red Blood Cells into Central Vein, Percutaneous Approach (ICD-10-PCS; principal; 2016-11-05)
DX: J96.20 Acute and chronic respiratory failure, unspecified whether with hypoxia or hypercapnia (principal); J69.0 Pneumonitis due to inhalation of food and vomit; E43 Unspecified severe protein-calorie malnutrition; G93.41 Metabolic encephalopathy; I50.33 Acute on chronic diastolic (congestive) heart failure; N17.9 Acute kidney failure, unspecified; K63.2 Fistula of intestine; A04.7 Enterocolitis due to Clostridium difficile; E85.9 Amyloidosis, unspecified; J91.8 Pleural effusion in other conditions classified elsewhere; I13.0 Hypertensive heart and chronic kidney disease with heart failure and stage 1 through stage 4 chronic kidney disease, or unspecified chronic kidney disease; N30.00 Acute cystitis without hematuria; E11.40 Type 2 diabetes mellitus with diabetic neuropathy, unspecified; Z79.4 Long term (current) use of insulin; Z79.52 Long term (current) use of systemic steroids; R62.7 Adult failure to thrive; I50.9 Heart failure, unspecified; H40.9 Unspecified glaucoma; Z86.718 Personal history of other venous thrombosis and embolism; I25.10 Atherosclerotic heart disease of native coronary artery without angina pectoris; Z95.1 Presence of aortocoronary bypass graft; E87.5 Hyperkalemia; Z51.5 Encounter for palliative care; Z97.8 Presence of other specified devices; I27.2 Other secondary pulmonary hypertension; N28.1 Cyst of kidney, acquired; D73.4 Cyst of spleen; I35.0 Nonrheumatic aortic (valve) stenosis; Z88.0 Allergy status to penicillin; K64.9 Unspecified hemorrhoids; M21.379 Foot drop, unspecified foot; S51.012A Laceration without foreign body of left elbow, initial encounter; Z66 Do not resuscitate; E11.22 Type 2 diabetes mellitus with diabetic chronic kidney disease; N18.3 Chronic kidney disease, stage 3 (moderate); N50.89 Other specified disorders of the male genital organs; B95.5 Unspecified streptococcus as the cause of diseases classified elsewhere; D63.8 Anemia in other chronic diseases classified elsewhere
CPT/HCPCS: A9270; C9113; J0610; J0696; J1650; J1720; J1940; J2020; J2270; J2543; J2765; J3370; J7030; J7040; J7050; J7512; P9016; P9047

== ENCOUNTER → 2016-11-11 | Outpatient (CLI) | payer MEDICARE, OTHER ==
[~2016-11-11] MED LIST changes: +CEFTRIAXONE2 GM IV; +CIPRO500 MG PO; +COUMADIN ** IA3 MG PO; +DULCOLAX10 MG R; +FLAGYL500 MG PO; +HYDROCORTISONE20 GM TOP; +LACTINEX (FLORA1 TAB PO; +LIDODERM1 EACH TOP; +MILK OF MA400 MG/5 M PO
== END | disposition disaster alternative care site (69) ==
LOC: GAMB 09:25
DX: R53.1 Weakness (principal); M89.8X8 Other specified disorders of bone, other site; G62.9 Polyneuropathy, unspecified; I12.9 Hypertensive chronic kidney disease with stage 1 through stage 4 chronic kidney disease, or unspecified chronic kidney disease; E11.22 Type 2 diabetes mellitus with diabetic chronic kidney disease; N18.3 Chronic kidney disease, stage 3 (moderate); M19.90 Unspecified osteoarthritis, unspecified site; E03.9 Hypothyroidism, unspecified; I25.10 Atherosclerotic heart disease of native coronary artery without angina pectoris; M48.00 Spinal stenosis, site unspecified; K92.2 Gastrointestinal hemorrhage, unspecified; R31.9 Hematuria, unspecified; N40.1 Benign prostatic hyperplasia with lower urinary tract symptoms; N39.0 Urinary tract infection, site not specified; R30.0 Dysuria; Z79.891 Long term (current) use of opiate analgesic
CPT/HCPCS: A0422; A0425; A0426